=== PATIENT | male | born 1995 | race Caucasian/White ===

== ENCOUNTER 2024-09-02 11:56 | Outpatient (CLI) | payer SELFPAY ==
[2024-09-02 15:49] LABS: Coronavirus 19, PCR Not Detected (NotDetected); Influenza A, PCR Not Detected (NotDetected); Influenza B, PCR Not Detected (NotDetected)
== END 2024-09-02 23:59 | disposition home or self-care (01) ==
LOC: LAB.DROPOF 09-03 09:50
PROVIDERS: PCP Student in an Organized Health Care Education/Training Program; Visit Provider Student in an Organized Health Care Education/Training Program
DX: R52 Pain, unspecified (principal); R05.9 Cough, unspecified; J06.9 Acute upper respiratory infection, unspecified; R09.81 Nasal congestion; Z72.0 Tobacco use
CPT/HCPCS: 87636

== ENCOUNTER 2024-09-27 09:20 | Outpatient (CLI) | payer SELFPAY ==
[2024-09-27 15:48] LABS: Coronavirus 19, PCR Not Detected (NotDetected); Influenza B, PCR Not Detected (NotDetected)
[2024-09-27 17:12] LABS: Influenza A, PCR Detected (NotDetected)
== END 2024-09-27 23:59 | disposition home or self-care (01) ==
LOC: LAB.DROPOF 09-29 09:21
PROVIDERS: Visit Provider Student in an Organized Health Care Education/Training Program
DX: J02.9 Acute pharyngitis, unspecified (principal); Z20.828 Contact with and (suspected) exposure to other viral communicable diseases
CPT/HCPCS: 87636

== ENCOUNTER 2025-05-11 07:38 | Inpatient (IN) | payer OTHER, SELFPAY ==
[2025-05-11] VITALS (7 sets, daily range): BP systolic 140–164; BP diastolic 84–114; PULSE 82–106; RESP 16–20; TEMP 36.7–36.9; O2SAT 93–98; BMI 52.0; BMI 52.3
--- NOTE | 2025-05-11 07:47 | CT_ITS ---
FINAL REPORT TECHNIQUE: IV contrast enhanced exam This study was performed with techniques to keep radiation doses as low as reasonably achievable, (ALARA). Individualized dose reduction techniques using automated exposure control or adjustment of mA and/or kV according to the patient''s size were employed. CLINICAL HISTORY: Constipation, vomiting, possible obstruction COMPARISON: none FINDINGS: Abdomen: No acute density is seen within the lung bases. There is gallbladder wall thickening with severe surrounding stranding and mild distention. A 24 mm gallstone is present in the central gallbladder. Findings are highly suspicious for acute cholecystitis. No evidence of biliary obstruction. There is fatty infiltration of the liver. The remaining solid abdominal organs are normal. No bowel obstruction is present. There is no free air. No fluid collection is seen. There is mild adenopathy in the john hepatis, probably reactive. Pelvis: The appendix is normal. No bowel wall thickening is present. There is no free fluid. No pelvic mass is seen. IMPRESSION: Findings highly suspicious for acute cholecystitis without biliary obstruction. No bowel obstruction. Reviewed, Interpreted and Dictated by Vivian Sanchez MD Transcribed by Ling Arguello Authenticated and [facility]
--- NOTE | 2025-05-11 07:49 | HMH.EDGENADL ---
Discharge Plan Disposition Patient Disposition: Admitted Prescriptions Prescriptions: No Action amoxicillin-pot clavulanate 875-125 mg tablet 1 tab PO BID 10 Days Qty: 20 0RF ibuprofen 600 mg tablet 600 mg PO Q6H PRN (Reason: fever or pain) Qty: 20 0RF Referrals Follow up/Referrals: Provider,Referral, [Primary Care Provider, Medical] - See instructions Clinical Impressions Clinical Impression: Acute cholecystitis Instructions Patient Instructions: DI for Acute Abdominal Pain Print Language Print Language: [place] Zealander Discharge ED Provider: Winston Calderon General Adult HPI General Chief complaint: Abdominal Pain Stated complaint: back pain, can't urinate, no BM in 5 days Time Seen by Provider: 05/11/25 07:40 History of Present Illness HPI narrative: Westley Neville is a 30-year-old male with no significant past medical history who presents to the emergency department for complaints of constipation, vomiting and abdominal pain and inability to urinate. Patient states that a week ago, he was treated for a sinus infection and over last 5 days has not had a bowel movement. He states that he has not producing any flatulence. He also states that over the last 3 days, he has been unable to keep down any solid foods and has been vomiting. He states that he is able to keep some liquids down but not all liquids. He denies any fevers. He states that he is having left-sided abdominal pain with this. He notes that he is unable to urinate unless he is taking a hot shower and even then it is only a slight dribble. He has not tried any [id number] laxatives or enemas or suppositories. He has not had any abdominal surgeries. He does report having bilateral lower back pain with this as well. Related Data Previous Rx's ?Medication ?Instructions ?Recorded amoxicillin 875 mg-potassium 1 tab PO BID 10 days #20 tabs 01/03/25 clavulanate 125 mg tablet ibuprofen 600 mg tablet 600 mg PO Q6H PRN fever or pain 01/03/25 #20 tabs Allergies Allergy/AdvReac Type Severity Reaction Status Date / Time No Known Allergies Allergy Verified 01/03/25 10:39 [facility] Disclaimer: The information contained in this section may have been updated after the patient was seen, as this information can be updated by other users. Medical History (Updated 05/11/25 @ 10:12 by Winston Calderon MD) Dental infection Social History Smoking Status: Current every day smoker tobacco type: cigarettes packs per day: 1 pack-years: 13 alcohol intake: current alcohol intake frequency: 0-2 drinks per day current occupational status: employed Travel in the last 8 weeks?: None adopted: No caregiver/support person: No foster care: No household members: none housing: house lives independently: Yes marital status: single number of children: 0 number of grandchildren: 0 Have you lived/traveled outside US in past 30 days?: No Contact w/someone who lives/traveled outside US past 30 days?: No Exposure to someone with infectious disease in past 14 days?: No Do you have a fever (greater than 100.4 F or 38 C)?: No Have you tested positive for COVID-19?: No Exposed to someone with COVID-19 in past 14 days?: No Do you have a sore throat?: No Do you have a cough?: No Do you have any weakness?: No Do you have any diarrhea?: No Are you experiencing any unusual bleeding?: No Do you have any muscle aches/pain?: No Do you have any abdominal pain?: No Are you experiencing loss of taste or smell?: No ROS Obtained: Yes Systems reviewed as appropriate & no additional complaints except as documented Physical Exam General General appearance: alert, in no apparent distress and obese Comment: appears uncomfortable Head Head exam: atraumatic Eye Eye exam: Present normal appearance ENT ENT exam: Present normal external ear exam Neck Neck exam: Present full ROM Chest Chest inspection: Present symmetric chest wall rise Respiratory Respiratory exam: Present normal lung sounds bilaterally; Absent respiratory distress, wheezes or stridor Cardiovascular Cardiovascular exam: Present normal rhythm and tachycardia Abdominal Exam Abdominal exam: Present soft and tenderness (Left upper quadrant, left lower quadrant and suprapubic); Absent guarding or rigidity exam: Present deferred Extremities Exam Extremities exam: Present normal inspection Back Exam Back exam: Present normal inspection; Absent CVA tenderness (R) or CVA tenderness (L) Neurological Exam Neurological exam: Present alert and oriented X3 Psychiatric Psychiatric exam: Present normal affect Skin Skin exam: Present warm and dry Medical Decision Making Medical Records Screening: Per USPSTF and CDC recommendations, given the prevalence of disease in our region, it is our hospital?s policy to screen for HIV and viral Hepatitis for all patients aged 18 and over and those with ongoing risk factors. David Inquiry Pt receiving controlled substance: No Vital Signs: 05/11/25 07:39 05/11/25 08:31 05/11/25 09:01 Temperature 98.1 F Temperature Source Oral Pulse Rate 86 82 Pulse Rate [Left Radial] 100 H Respiratory Rate 20 Blood Pressure 148/93 H 142/85 H Blood Pressure [Right Arm] 164/114 H Blood Pressure Mean [Right Arm] 130 02 Sat by Pulse Oximetry 96 95 95 Oxygen Delivery Method Room Air Lab Data Lab Results 05/11/25 07:45: WBC 17.9 H, RBC 5.91, Hgb 15.8, Hct 46.3, MCV 78.3 L, MCH 26.7 L, MCHC 34.1, RDW 12.4, Plt Count 386, MPV 10.0, Neut % (Auto) 83.7 H, Lymph % (Auto) 8.7 L, [place] % (Auto) 5.8, Eos % (Auto) 1.0, Baso % (Auto) 0.4, Neut # (Auto) 15.0 H, Lymph # (Auto) 1.6, [place] # (Auto) 1.0, Eos # (Auto) 0.2, Baso # (Auto) 0.1, Sodium 135 L, Potassium 3.7, Chloride 97 L, Carbon Dioxide 27, Anion Gap 14.7, BUN 11, Creatinine 0.90, Estimated Creat Clear 110, Estimated GFR 98, Est GFR ( Amer) 118, Glucose 128 H, Lactate 0.8, Calcium 9.3, Total Bilirubin 1.1, AST 30, ALT 41, Alkaline Phosphatase 79, Total Protein 8.9 H, Albumin 4.5, Globulin 4.4 H, Albumin/Globulin Ratio 1.0 L, Lipase 35 05/11/25 09:42: Urine Color Yellow, Urine Appearance Clear, Urine pH 6.5, Ur Specific [place] 1.010, Urine Protein 1+ A, Urine Glucose (UA) Negative, Urine Ketones 2+, Urine Blood Trace-i, Urine Nitrate Negative, Urine Bilirubin 1+ A, Urine Urobilinogen 2.0, Ur Leukocyte Esterase Negative, Urine RBC None, Urine WBC Occasional, Ur Squamous Epith Cells Occasional, Urine Bacteria Trace 05/11/25 07:45 05/11/25 07:45 Orders (Tests/Meds): ED MEDICATIONS Generic Name Dose Route Start Last Admin Trade Name Freq PRN Reason Stop Dose Admin Piperacillin Sod/Tazobactam 100 mls @ 200 mls/hr 05/11/25 10:00 Sod 4.5 gm/ Sodium Chloride IV 05/21/25 09:59 Q8H MARIO Discontinued Medications Generic Name Dose Route Start Last Admin Trade Name Freq PRN Reason Stop Dose Admin Lactated Ringer's 1,000 mls @ 999 mls/hr 05/11/25 07:47 05/11/25 09:09 Lactated Ringer's 1000 Ml Bag IV 05/11/25 08:47 Infused .Q1H1M ONE Infusion Iopamidol 75 ml 05/11/25 08:22 05/11/25 08:23 Iopamidol-370 (76%);100ml Bottle IV 05/11/25 08:23 75 ml ONCE ONE Administration Ketorolac Tromethamine 15 mg 05/11/25 07:54 05/11/25 08:04 Ketorolac 15mg/Ml Vial IV 05/11/25 07:55 15 mg ONCE ONE Administration Morphine Sulfate 4 mg 05/11/25 09:51 Morphine 4mg/Ml Syringe IV 05/11/25 09:52 ONCE ONE Ondansetron HCl 4 mg 05/11/25 07:47 05/11/25 08:04 Ondansetron 4mg/2ml Vial IV 05/11/25 07:48 4 mg ONCE ONE Administration Sodium Chloride 10 ml 05/11/25 08:22 05/11/25 08:23 Sodium Chloride 0.9% 10ml Syr (Rad Only) IV 05/11/25 08:23 10 ml ONCE ONE Administration ORDERS Category Date Time Status CT abdomen pelvis w con Stat Cat Scan 05/11/25 07:47 Completed US RUQ [US abdomen limited] Stat Exams 05/11/25 09:51 Taken CBC w/Auto Diff [Complete Blood Count Auto Diff] Stat Lab 05/11/25 07:45 Completed CMP [Comprehensive Metabolic Panel] Stat Lab 05/11/25 07:45 Completed Lactic Acid Stat Lab 05/11/25 07:45 Completed Lipase Stat Lab 05/11/25 07:45 Completed UA [Urinalysis and Microscopic] Stat Lab 05/11/25 09:42 Completed Medical Decision Narrative: Westley Neville is a 30-year-old male with no significant past medical history who presents to the emergency department for complaints of constipation, vomiting and abdominal pain and inability to urinate. Patient states that a week ago, he was treated for a sinus infection and over last 5 days has not had a bowel movement. He states that he has not producing any flatulence. He also states that over the last 3 days, he has been unable to keep down any solid foods and has been vomiting. He states that he is able to keep some liquids down but not all liquids. He denies any fevers. He states that he is having left-sided abdominal pain with this. He notes that he is unable to urinate unless he is taking a hot shower and even then it is only a slight dribble. He has not tried any dznq-[id number] laxatives or enemas or suppositories. He has not had any abdominal surgeries. He does report having bilateral lower back pain with this as well. On arrival, patient is hypertensive with blood pressure 164/114, borderline tachycardic, afebrile, maintaining appropriate oxygen saturation on room air. Physical exam, as stated above, revealed a nontoxic-appearing male in no respiratory distress. He is alert and answering questions appropriately. He has tenderness over the left upper quadrant, left lower quadrant and suprapubic regions without significant guarding or rebound. No peritonitis. Cardiac exam reveals mild tachycardia but no murmurs or rubs. No wheezing, rales or rhonchi. Patient has no CVA tenderness. Differential diagnosis includes, but is not limited to: Constipation, fecal impaction, bowel obstruction, volvulus, ileus, diverticulitis, acute pancreatitis, gastroenteritis, among others. The most morbid conditions were considered and workup was based on these. Initial workup in the emergency department included: CT abdomen pelvis with IV contrast, CBC with differential, CMP, lactic acid, lipase, urinalysis. Patient was treated with 4 mg of IV Zofran and 1 L lactated Ringer's Workup shows leukocytosis of 17.9 with neutrophil predominance. No anemia. Platelets normal. Mild hyponatremia at 135 but electrolytes otherwise grossly unremarkable nonactionable. No JORGITO. Lactate normal at 0.8. Liver enzymes and bilirubin within normal limits. Lipase normal at 35. Urine shows 1+ bilirubin but negative nitrate and negative leukocyte esterase. No evidence of infection. CT imaging was interpreted by me personally. There is a 2.4 cm gallstone within the gallbladder with gallbladder wall thickening and significant stranding around the gallbladder consistent with acute cholecystitis. No evidence of bowel obstruction. See radiology report for details. Given these findings, I did discuss patient's case with Dr. Galan with the general surgery team who agreed with diagnosis of acute cholecystitis. He recommended antibiotics, right upper quadrant ultrasound and admission with likely surgery tomorrow. Will obtain right upper quadrant ultrasound. Will administer 4 mg of IV morphine for continued pain. I discussed this plan with the patient and he was in agreement with admission at this time. I then discussed patient's case with Dr. Hendrickson with the hospital medicine service for admission and he agreed to admit the patient for further management. Critical Care Critical Care Time Critical Care Time: No
[2025-05-11] MEDS: ONDANSETRON 4MG/2ML VIAL 4 MG IV (08:04)
[2025-05-11] MEDS: KETOROLAC 15MG/ML VIAL 15 MG IV (08:04)
[2025-05-11] MEDS: LACTATED RINGERS 1000ML 1,000 ML 999 ML IV (08:04)
[2025-05-11 08:06] LABS: Hematocrit 46.3 % (42.0-52.0); Hemoglobin 15.8 g/dL (14.1-18.0); Immature Granulocytes % 0.4 %; Mean Corpuscular HGB Conc 34.1 g/dL (31.8-35.4); Mean Corpuscular Hemoglobin 26.7 pg (27.0-31.2); Mean Corpuscular Volume 78.3 fl (80-94); Nucleated Red Blood Cells % 0 %; Platelet Count 386 K/mm3 (142-424); Red Blood Count 5.91 M/mm3 (4.60-6.20); Red Cell Distribution Width-SD 35.1 fL; White Blood Count 17.9 K/mm3 (4.8-10.8)
[2025-05-11 08:14] LABS: Albumin Level 4.5 g/dl (3.5-5.0); Chloride 97 mmol/L (98-107); Potassium 3.7 mmoL/L (3.5-5.1); Sodium 135 mmol/L (136-145)
[2025-05-11 08:17] LABS: Alanine Aminotransferase 41 U/L (12-78); Albumin/Globulin Ratio 1.0 (1.1-1.8); Alkaline Phosphatase 79 U/L (38-126); Anion Gap 14.7 mEq/L (5-15); Aspartate Amino Transferase 30 U/L (17-59); Bilirubin,Total 1.1 mg/dl (0.2-1.3); Blood Urea Nitrogen 11 mg/dl (9-20); Carbon Dioxide 27 mmol/L (22.0-30.0); Creatinine Clearance Estimated 110 mL/min (50-200); Creatinine,Serum 0.90 mg/dl (0.66-1.25); Estimated Glomerular Filt Rate 98 ml/min (>60); GFR (African American) 118 ML/MIN (>60); Globulin 4.4 g/dL (1.3-3.2); Total Protein,Serum 8.9 g/dl (6.3-8.2)
[2025-05-11 08:18] LABS: Calcium 9.3 mg/dl (8.4-10.2); Glucose 128 mg/dl (74-100); Lipase 35 U/L (23-300)
[2025-05-11] MEDS: IOPAMIDOL-370 (76%);100ML BOTTLE 75 ML IV (08:23)
[2025-05-11] MEDS: SODIUM CHLORIDE 0.9% 10ML SYR (RAD ONLY) 10 ML IV (08:23)
--- NOTE | 2025-05-11 09:44 | PC.NURSE ---
paged at this time.
--- NOTE | 2025-05-11 09:51 | US_ITS ---
FINAL REPORT TECHNIQUE: Multiple transverse and longitudinal images CLINICAL HISTORY: Acute cholecystitis FINDINGS: There is a dominant gallstone in the proximal gallbladder measuring up to 2.7 cm. There is gallbladder wall thickening with trace surrounding fluid raising the question of acute cholecystitis. No biliary ductal dilatation is appreciated. No fluid collections are seen. Limited portions of the right liver are unremarkable. Limited portions of the right kidney are unremarkable. Pancreas is largely obscured. IMPRESSION: Cholelithiasis with findings suggestive of acute cholecystitis. Reviewed, Interpreted and Dictated by Vivian Sanchez MD Transcribed by Barb France Authenticated and [facility]
[2025-05-11 09:52] LABS: Microscopic, Urine URINE MICROSCOPIC (MICROSCOPIC)
--- NOTE | 2025-05-11 09:52 | PC.NURSE ---
AMANDA RAY on phone with dr mejia for surgery consult
[2025-05-11 09:54] LABS: Color,Urine YELLOW (Yellow); Glucose,Urine (UA) Negative (Negative); Ketones,Urine 2+ (Negative); Leukocyte Esterase,Urine Negative (Negative); PH,Urine 6.5 (5.0-8.5); Protein,Urine 1+ (Negative); Specific Gravity, Urine 1.010 (1.005-1.030); Urobilinogen,Urine 2.0 EU/dl (0.2)
[2025-05-11 10:08] LABS: Bilirubin,Urine 1+ (Negative)
[2025-05-11 10:09] LABS: Bacteria,Urine Trace /lpf; Squamous Epithelial Cell,Urine Occasional #/hpf (0-5); WBC,Urine Occasional #/hpf (0-3)
--- NOTE | 2025-05-11 10:33 | P.CONS_ITS ---
History of Present Illness *Admission Date: 05/11/25 *Reason for visit:: Acute cholecystitis *History of present illness: Patient is a 30-year-old male with BMI of 52 who presented to the emergency department today on 05/11/2025 with a 5-day history of unusual constellation of symptoms including inability to urinate, constipation, vomiting. He had some associated bilateral lower back pain. Examination in the emergency department revealed some left upper quadrant and left lower quadrant as well as suprapubic tenderness. Evaluation revealed a leukocytosis of 17,900. He underwent CT scan which revealed findings consistent with acute cholecystitis without biliary ductal dilatation with a 2.4 cm gallstone with severe surrounding pericholecystic stranding with mild distention and gallbladder wall thickening. Surgery was consulted. [facility] Disclaimer: The information contained in this section may have been updated after the patient was seen, as this information can be updated by other users. Medical History (Updated 05/11/25 @ 10:12 by Winston Calderon MD) Dental infection Social History Smoking Status: Current every day smoker tobacco type: cigarettes packs per day: 1 pack-years: 13 alcohol intake: current alcohol intake frequency: 0-2 drinks per day current occupational status: employed Travel in the last 8 weeks?: None adopted: No caregiver/support person: No foster care: No household members: none housing: house lives independently: Yes marital status: single number of children: 0 number of grandchildren: 0 Have you lived/traveled outside US in past 30 days?: No Contact w/someone who lives/traveled outside US past 30 days?: No Exposure to someone with infectious disease in past 14 days?: No Do you have a fever (greater than 100.4 F or 38 C)?: No Have you tested positive for COVID-19?: No Exposed to someone with COVID-19 in past 14 days?: No Do you have a sore throat?: No Do you have a cough?: No Do you have any weakness?: No Do you have any diarrhea?: No Are you experiencing any unusual bleeding?: No Do you have any muscle aches/pain?: No Do you have any abdominal pain?: No Are you experiencing loss of taste or smell?: No Meds Home Medications and Allergies New Prescriptions to Start Prescriptions: Allergies Allergy/AdvReac Type Severity Reaction Status Date / Time No Known Allergies Allergy Verified 01/03/25 10:39 Exam (Inpt) Vital signs and Labs for Last 24 Hours: Temp Pulse Resp BP Pulse Ox O2 Del Method 98.1 F 82 20 142/85 H 95 Room Air 05/11/25 07:39 05/11/25 09:01 05/11/25 07:39 05/11/25 09:01 05/11/25 09:01 05/11/25 07:39 Laboratory Results - last 24 hr 05/11/25 07:45: WBC 17.9 H, RBC 5.91, Hgb 15.8, Hct 46.3, MCV 78.3 L, MCH 26.7 L , MCHC 34.1, RDW 12.4, Plt Count 386, MPV 10.0, Neut % (Auto) 83.7 H, Lymph % (Auto) 8.7 L, [place] % (Auto) 5.8, Eos % (Auto) 1.0, Baso % (Auto) 0.4, Neut # (Auto) 15.0 H, Lymph # (Auto) 1.6, [place] # (Auto) 1.0, Eos # (Auto) 0.2, Baso # (Auto) 0.1, Sodium 135 L, Potassium 3.7, Chloride 97 L, Carbon Dioxide 27, Anion Gap 14.7, BUN 11, Creatinine 0.90, Estimated Creat Clear 110, Estimated GFR 98, Est GFR ( Amer) 118, Glucose 128 H, Lactate 0.8, Calcium 9.3, Total Bilirubin 1.1, AST 30, ALT 41, Alkaline Phosphatase 79, Total Protein 8.9 H, Albumin 4.5, Globulin 4.4 H, Albumin/Globulin Ratio 1.0 L, Lipase 35 05/11/25 09:42: Urine Color Yellow, Urine Appearance Clear, Urine pH 6.5, Ur Specific [place] 1.010, Urine Protein 1+ A, Urine Glucose (UA) Negative, Urine Ketones 2+, Urine Blood Trace-i, Urine Nitrate Negative, Urine Bilirubin 1+ A, Urine Urobilinogen 2.0, Ur Leukocyte Esterase Negative, Urine RBC None, Urine WBC Occasional, Ur Squamous Epith Cells Occasional, Urine Bacteria Trace I & O for Labs for Last 24 Hours: Intake & Output 05/08/25 05/09/25 05/10/25 05/11/25 11:59 11:59 11:59 11:59 Intake Total 1000 / 1000 Balance 1000 / 999 Weight 332 lb Constitutional: no acute distress GI: Present soft; Absent tenderness Results Labs 05/11/25 07:45 05/11/25 07:45 Labs: Laboratory Results - last 24 hr 05/11/25 07:45: WBC 17.9 H, RBC 5.91, Hgb 15.8, Hct 46.3, MCV 78.3 L, MCH 26.7 L , MCHC 34.1, RDW 12.4, Plt Count 386, MPV 10.0, Neut % (Auto) 83.7 H, Lymph % (Auto) 8.7 L, [place] % (Auto) 5.8, Eos % (Auto) 1.0, Baso % (Auto) 0.4, Neut # (Auto) 15.0 H, Lymph # (Auto) 1.6, [place] # (Auto) 1.0, Eos # (Auto) 0.2, Baso # (Auto) 0.1, Sodium 135 L, Potassium 3.7, Chloride 97 L, Carbon Dioxide 27, Anion Gap 14.7, BUN 11, Creatinine 0.90, Estimated Creat Clear 110, Estimated GFR 98, Est GFR ( Amer) 118, Glucose 128 H, Lactate 0.8, Calcium 9.3, Total Bilirubin 1.1, AST 30, ALT 41, Alkaline Phosphatase 79, Total Protein 8.9 H, Albumin 4.5, Globulin 4.4 H, Albumin/Globulin Ratio 1.0 L, Lipase 35 05/11/25 09:42: Urine Color Yellow, Urine Appearance Clear, Urine pH 6.5, Ur Specific [place] 1.010, Urine Protein 1+ A, Urine Glucose (UA) Negative, Urine Ketones 2+, Urine Blood Trace-i, Urine Nitrate Negative, Urine Bilirubin 1+ A, Urine Urobilinogen 2.0, Ur Leukocyte Esterase Negative, Urine RBC None, Urine WBC Occasional, Ur Squamous Epith Cells Occasional, Urine Bacteria Trace Assessment and Plan *Assessment and plan (1) Acute cholecystitis: Status: Acute Category: Medical Code(s): K81.0 - Acute cholecystitis Plan Even though patient's initial symptoms and complaints were rather atypical his CT scan shows appreciable significant cholecystitis. Recommend inpatient admission for antibiotics. Definitive ultrasound. Plan for likely early interval cholecystectomy.
[2025-05-11] MEDS: MORPHINE 4MG/ML SYRINGE 4 MG IV (10:35)
[2025-05-11] MEDS: PIPERACILLIN/TAZO 4.5 GM in 0.9 % SODIUM CHLORIDE 100 ML IV ×2 (10:35→17:49)
--- NOTE | 2025-05-11 10:48 | PC.NURSE ---
Dr Galan is speaking with this pt at this time
--- NOTE | 2025-05-11 11:22 | PC.NURSE ---
arrived by w/c from ED
--- NOTE | 2025-05-11 12:37 | P.HP_ITS ---
<Statement entered by Gokul Hendrickson MD - 05/13/25 12:57> Agree with plan of care as outlined by the RANGE MOUNTER. History of Present Illness *Admission Date: 05/11/25 *Reason for visit:: Abdominal pain *History of present illness: Patient is a 30-year-old male with BMI of 52 who presented to the emergency department on 05/11/2025 with a 5-day history of unusual constellation of symptoms including inability to urinate, constipation, vomiting. He had some associated bilateral lower back pain. Examination in the emergency department revealed some left upper quadrant and left lower quadrant as well as suprapubic tenderness. Evaluation revealed a leukocytosis of 17,900. He underwent CT scan which revealed findings consistent with acute cholecystitis without biliary ductal dilatation with a 2.4 cm gallstone with severe surrounding pericholecystic stranding with mild distention and gallbladder wall thickening. Surgery was consulted. [facility] Disclaimer: The information contained in this section may have been updated after the patient was seen, as this information can be updated by other users. Medical History (Updated 05/11/25 @ 15:07 by Miguelina Meek APRN) Dental infection Family History (Updated 05/11/25 @ 11:45 by Judy Hammer RN) Other No significant family history Social History (Updated 05/11/25 @ 11:45 by Judy Hammer RN) Smoking Status: Current every day smoker tobacco type: cigarettes packs per day: 1 pack-years: 13 alcohol intake: current alcohol intake frequency: 0-2 drinks per day current occupational status: employed Travel in the last 8 weeks?: None adopted: No caregiver/support person: No foster care: No household members: none housing: house lives independently: Yes marital status: single number of children: 0 number of grandchildren: 0 Have you lived/traveled outside [place] in past 30 days?: No Contact w/someone who lives/traveled outside US past 30 days?: No Exposure to someone with infectious disease in past 14 days?: No Do you have a fever (greater than 100.4 F or 38 C)?: No Have you tested positive for COVID-19?: No Exposed to someone with COVID-19 in past 14 days?: No Do you have a sore throat?: No Do you have a cough?: No Do you have any weakness?: No Do you have any diarrhea?: No Are you experiencing any unusual bleeding?: No Do you have any muscle aches/pain?: No Do you have any abdominal pain?: No Are you experiencing loss of taste or smell?: No Other Medical History Have you received the Flu Vaccine for this season: No Have you received the Pneumonia Vaccine: No Review of Systems *Cardiovascular Cardiovascular: Denies chest pain and Denies dyspnea *Respiratory Respiratory: Denies dyspnea *Gastrointestinal Gastrointestinal: Reports abdominal pain, Denies heartburn, Reports nausea and Reports vomiting *Genitourinary Genitourinary: Denies dysuria Meds Home Medications and Allergies Home Medications ?Medication ?Instructions ?Recorded ?Confirmed ?Type No Known Home Medications 05/11/2504/21 History New Prescriptions to Start Prescriptions: Allergies Allergy/AdvReac Type Severity Reaction Status Date / Time No Known Allergies Allergy Verified 01/03/25 10:39 Exam Data for Last 24 hours Vital signs and Labs for Last 24 Hours: Temp Pulse Resp BP Pulse Ox O2 Del Method 98.2 F 87 17 152/96 H 97 Room Air 05/11/25 10:56 05/11/25 11:26 05/11/25 11:26 05/11/25 11:26 05/11/25 11:26 05/11/25 11:26 Laboratory Results - last 24 hr 05/11/25 07:45: WBC 17.9 H, RBC 5.91, Hgb 15.8, Hct 46.3, MCV 78.3 L, MCH 26.7 L , MCHC 34.1, RDW 12.4, Plt Count 386, MPV 10.0, Neut % (Auto) 83.7 H, Lymph % (Auto) 8.7 L, [place] % (Auto) 5.8, Eos % (Auto) 1.0, Baso % (Auto) 0.4, Neut # (Auto) 15.0 H, Lymph # (Auto) 1.6, [place] # (Auto) 1.0, Eos # (Auto) 0.2, Baso # (Auto) 0.1, Sodium 135 L, Potassium 3.7, Chloride 97 L, Carbon Dioxide 27, Anion Gap 14.7, BUN 11, Creatinine 0.90, Estimated Creat Clear 110, Estimated GFR 98, Est GFR ( Amer) 118, Glucose 128 H, Lactate 0.8, Calcium 9.3, Total Bilirubin 1.1, AST 30, ALT 41, Alkaline Phosphatase 79, Total Protein 8.9 H, Albumin 4.5, Globulin 4.4 H, Albumin/Globulin Ratio 1.0 L, Lipase 35 05/11/25 09:42: Urine Color Yellow, Urine Appearance Clear, Urine pH 6.5, Ur Specific [place] 1.010, Urine Protein 1+ A, Urine Glucose (UA) Negative, Urine Ketones 2+, Urine Blood Trace-i, Urine Nitrate Negative, Urine Bilirubin 1+ A, Urine Urobilinogen 2.0, Ur Leukocyte Esterase Negative, Urine RBC None, Urine WBC Occasional, Ur Squamous Epith Cells Occasional, Urine Bacteria Trace I & O for Last 24 hours: Intake & Output 05/08/25 05/09/25 05/10/25 05/11/25 23:59 23:59 23:59 23:59 Intake Total 1100 / 1100 Balance 1100 / 1100 Weight 151.557 kg Constitutional Constitutional: no acute distress, morbidly obese and cooperative *Routine HEENT Exam Head: Present normocephalic Eye: Present EOMI ENT: Present mucous membranes moist *Routine Neck Exam Neck: Present supple *Routine Respiratory Exam Respiratory: Present CTA bilaterally and normal respiratory effort; Absent wheezes or crackles *Routine Cardiovascular Exam Cardiovascular: Present RRR; Absent murmur *Routine Abdominal Exam Abdominal: Present soft, normoactive bowel sounds, tenderness and obese; Absent distended *Routine Rectal Exam Rectal:: deferred *Routine Genitalia Exam Genitalia:: deferred *Routine Extremities Exam Extremities: Present full ROM; Absent edema *Routine Skin Exam Skin: Present intact and dry; Absent rash *Routine Neurological Exam Neurological: Present alert and oriented X3 Assessment and Plan *Assessment and plan (1) Acute cholecystitis: Status: Acute Category: Medical Code(s): K81.0 - Acute cholecystitis (2) Abdominal pain: Status: Acute Category: Medical Code(s): R10.9 - Unspecified abdominal pain (3) Leukocytosis: Status: Acute Category: Medical Code(s): D72.829 - Elevated white blood cell count, unspecified Plan Mr. Neville is a 30-year-old male who presented to the emergency department with complaints of abdominal pain, nausea, vomiting. He states that he has been feeling bad for approximately 4 days. He has been unable to tolerate significant p.o. intake. Workup in the emergency department was significant for elevated white count of 17.9, no anemia, no electrolyte abnormalities, normal kidney function. Imaging was obtained in the emergency department which showed acute cholecystitis. Right upper quadrant ultrasound was also obtained which was significant for cholelithiasis with findings suggestive of acute cholecystitis. General surgery was consulted. Hospital medicine was consulted for admission, I agreed to admit the patient. Plan of care as follows: #Acute cholecystitis #Abdominal pain #Leukocytosis ? Patient assessment reveals continued nausea and abdominal pain. Tylenol ordered for mild pain, [place] 5/325 for moderate pain, morphine 2 mg every 4 hours as needed for severe pain. Zofran ordered as needed for nausea. ? General Surgery consulted, plans for laparoscopic cholecystectomy tomorrow. Clear liquid diet ordered, patient made n.p.o. after midnight. ? Leukocytosis noted at 17.9. Patient receiving Zosyn every 8-hour empirically. ? CBC, CMP, magnesium level ordered for the a.m. Full code VTE?IPC's Ambulate as tolerated Clear liquid diet, n.p.o. at midnight
[2025-05-11] MEDS: NICOTINE 21MG/24HR PATCH 21 MG TD (14:37)
[2025-05-11] MEDS: HYDROCODONE/APAP 5/325 MG TABLET 1 TAB PO (14:43)
[2025-05-11] MEDS: LIDOCAINE 5% TRANSDERMAL PATCH 1 EACH TD (18:08)
[2025-05-11] MEDS: ZOLPIDEM TARTRATE 5 MG TABLET PO (21:26)
[2025-05-12] VITALS (29 sets, daily range): BP systolic 134–179; BP diastolic 81–113; PULSE 82–111; RESP 14–24; TEMP 36.4–43; O2SAT 90–97; BMI 52.1
[2025-05-12] MEDS: PIPERACILLIN/TAZO 4.5 GM in 0.9 % SODIUM CHLORIDE 100 ML IV ×2 (02:15→17:39)
[2025-05-12 06:11] LABS: Hematocrit 45.0 % (42.0-52.0); Hemoglobin 14.9 g/dL (14.1-18.0); Immature Granulocytes % 0.5 %; Mean Corpuscular HGB Conc 33.1 g/dL (31.8-35.4); Mean Corpuscular Hemoglobin 26.4 pg (27.0-31.2); Mean Corpuscular Volume 79.8 fl (80-94); Nucleated Red Blood Cells % 0 %; Platelet Count 323 K/mm3 (142-424); Red Blood Count 5.64 M/mm3 (4.60-6.20); Red Cell Distribution Width-SD 36.0 fL; White Blood Count 14.8 K/mm3 (4.8-10.8)
[2025-05-12 06:31] LABS: Albumin Level 4.2 g/dl (3.5-5.0); Chloride 97 mmol/L (98-107); Sodium 135 mmol/L (136-145)
[2025-05-12 06:32] LABS: Potassium 3.7 mmoL/L (3.5-5.1)
[2025-05-12 06:34] LABS: Alanine Aminotransferase 55 U/L (12-78); Anion Gap 15.7 mEq/L (5-15); Aspartate Amino Transferase 38 U/L (17-59); Blood Urea Nitrogen 9 mg/dl (9-20); Carbon Dioxide 26 mmol/L (22.0-30.0); Creatinine Clearance Estimated 96 mL/min (50-200); Creatinine,Serum 1.00 mg/dl (0.66-1.25); Estimated Glomerular Filt Rate 87 ml/min (>60); GFR (African American) 105 ML/MIN (>60)
--- NOTE | 2025-05-12 06:34 | PC.NURSE ---
2011 PT was moved from the Med surg floor room 207 to surgery for a acute sylvain. Pt voiced no comcerns or questions. FRIDA STODDARD RN
[2025-05-12 06:35] LABS: Albumin/Globulin Ratio 1.1 (1.1-1.8); Alkaline Phosphatase 74 U/L (38-126); Bilirubin,Total 1.0 mg/dl (0.2-1.3); Calcium 9.0 mg/dl (8.4-10.2); Globulin 3.8 g/dL (1.3-3.2); Glucose 103 mg/dl (74-100); Magnesium 1.9 mg/dl (1.6-2.3); Total Protein,Serum 8.0 g/dl (6.3-8.2)
--- NOTE | 2025-05-12 07:08 | P.PNANES_ITS ---
[facility] Disclaimer: The information contained in this section may have been updated after the patient was seen, as this information can be updated by other users. Medical History (Updated 05/11/25 @ 15:07 by Miguelina Meek APRN) Dental infection Family History (Updated 05/11/25 @ 11:45 by Judy Hammer RN) Other No significant family history Social History (Updated 05/11/25 @ 11:45 by Judy Hammer RN) Smoking Status: Current every day smoker tobacco type: cigarettes packs per day: 1 pack-years: 13 alcohol intake: current alcohol intake frequency: 0-2 drinks per day substance use type: denies use current occupational status: employed Travel in the last 8 weeks?: None adopted: No caregiver/support person: No foster care: No household members: none housing: house lives independently: Yes marital status: single number of children: 0 number of grandchildren: 0 [facility] Anesthesia Checklist Patient Identification Patient Identification: Arm Band Structural Data Admitted From: Inpatient Planned Operative Procedure/s: Laparoscopic Cholecystectomy Consent for Planned Operative Procedure(s) Verified: Yes Verified Documents: Surgical Consent and History and Physical NPO Status Verified Time NPO: 00:00 Additional verifications Anesthesia Reactions: No Airway Assessment Mallampati Score:: Class II C-Spine Mobility Assessed: Yes TMJ Mobility Assessed: Yes Dentition: Good Dentition Neurological Assessment Level of Consciousness: Awake, Alert and Appropriate Anesthesia Plan Anesthesia Risk discussed: Yes Anesthesia Plan: Verified ASA Class: III Anesthesia Type: General
[2025-05-12] MEDS: LIDOCAINE 1% 20ML MDV 20 ML (07:41)
[2025-05-12] MEDS: CEFAZOLIN 2GM VIAL 2 GM (07:43)
--- NOTE | 2025-05-12 12:32 | PC.NURSE ---
report called to Ana Luisa in ICU
--- NOTE | 2025-05-12 12:59 | P.PN_ITS ---
<Statement entered by Gokul Hendrickson MD - 05/13/25 12:54> Agree with plan of care as outlined by the LINK TRAINER OPERATOR. Subjective *Date: 05/12/25 *Time: 14:37 Interval history: Patient had laparoscopic cholecystectomy today. Procedure took substantially longer than expected, approximately 5-1/2 hours. Patient tolerated procedure well, JONATHAN drain was inserted in the peritoneal cavity. 4 times laparoscopic sites intact. Patient transferred to stepdown for close monitoring. Patient remains hemodynamically stable. Medical Exam Vital signs and Labs for Last 24 Hours: Vital Signs Temp Pulse Resp BP Pulse Ox O2 Del Method 05/12/25 06:17 98.3 F 111 H 14 134/82 96 Room Air 05/12/25 05:00 Room Air 05/12/25 04:00 98.3 F 111 H 16 134/82 96 Room Air 05/12/25 03:00 Room Air 05/12/25 01:00 Room Air 05/11/25 23:00 Room Air 05/11/25 21:00 Room Air 05/11/25 20:00 Room Air 05/11/25 19:56 98.4 F 105 H 16 142/88 H 95 Room Air 05/11/25 18:58 Room Air 05/11/25 17:00 Room Air 05/11/25 16:00 98.3 F 106 H 18 161/97 H 93 L Room Air 05/11/25 15:00 Room Air 05/11/25 13:00 Room Air Intake and Output 05/11/25 05/12/25 05/12/25 23:59 07:59 15:59 Intake Total 100 / 1800 220 / 220 Output Total 0 / 0 0 / 0 Balance 100 / 1800 220 / 220 Intake: Intake, Oral Amount 120 / 120 Intake, Total IV Amount 100 / 1200 100 / 100 Piperacillin/Tazo 4.5 gm In 0.9 100 / 200 100 / 100 % Sodium Chloride 100 ml @ 200 mls/hr IV Q8H [facility] Rx#:[id number] Output: Output, Urine Amount 0 / 0 0 / 0 Other: Number of Unmeasured Voids 1 1 Weight 150.638 kg Patient Weight 05/12/25 23:59 Weight 150.638 kg Laboratory Results - last 24 hr 05/12/25 05:19: WBC 14.8 H, RBC 5.64, Hgb 14.9, Hct 45.0, MCV 79.8 L, MCH 26.4 L , MCHC 33.1, RDW 12.6, Plt Count 323, MPV 10.6 H, Neut % (Auto) 74.9, Lymph % (Auto) 12.8, [place] % (Auto) 6.9, Eos % (Auto) 4.4, Baso % (Auto) 0.5, Neut # (Auto) 11.1 H, Lymph # (Auto) 1.9, [place] # (Auto) 1.0, Eos # (Auto) 0.7 H, Baso # (Auto) 0.1, Sodium 135 L, Potassium 3.7, Chloride 97 L, Carbon Dioxide 26, Anion Gap 15.7 H, BUN 9, Creatinine 1.00, Estimated Creat Clear 96, Estimated GFR 87, Est GFR ( Amer) 105, Glucose 103 H, Calcium 9.0, Magnesium 1.9, Total Bilirubin 1.0, AST 38 D, ALT 55 D, Alkaline Phosphatase 74, Total Protein 8.0, Albumin 4.2, Globulin 3.8 H, Albumin/Globulin Ratio 1.1 I & O for Labs for Last 24 Hours: Intake & Output 05/09/25 05/10/25 05/11/25 05/12/25 23:59 23:59 23:59 23:59 Intake Total 1680 / 1800 220 / 220 Output Total 0 / 0 0 / 0 Balance 1680 / 1800 220 / 220 Weight 151.557 kg 150.638 kg Constitutional: Present no acute distress, morbidly obese, chronically ill appearing and cooperative Head: Present atraumatic Eyes: Present as per HPI ENT: Present normal exam Neck: Present normal inspection Respiratory: Present CTA bilaterally and normal respiratory effort; Absent wheezes or crackles Cardiac: Present Regular Rhythm, No Murmur and Tachycardia GI: Present soft, tenderness and hypoactive bowel sounds; Absent distention Comments:: JONATHAN drain inserted from surgery, 4 times laparoscopic surgical sites with dressings Rectal (male): Present deferred (male): Present normal inspection Comment:: Stevenson catheter in place Extremities: Present normal inspection and full ROM; Absent edema Skin: Present intact and dry; Absent erythema Neuro: Present Grossly Intact, awake, oriented x 3 and moves all extremities Assessment and Plan *Assessment and plan (1) Acute cholecystitis: Status: Acute Category: Medical Code(s): K81.0 - Acute cholecystitis (2) Abdominal pain: Status: Acute Category: Medical Code(s): R10.9 - Unspecified abdominal pain (3) Leukocytosis: Status: Acute Category: Medical Code(s): D72.829 - Elevated white blood cell count, unspecified (4) Status post laparoscopic cholecystectomy: Status: Acute Category: Surgical Code(s): Z90.49 - Acquired absence of other specified parts of digestive tract (5) Transaminitis: Status: Acute Category: Medical Code(s): R74.01 - Elevation of levels of liver transaminase levels Plan Mr. Neville is a 30-year-old male who presented to the emergency department with complaints of abdominal pain, nausea, vomiting. He states that he has been feeling bad for approximately 4 days. He has been unable to tolerate significant p.o. intake. Workup in the emergency department was significant for elevated white count of 17.9, no anemia, no electrolyte abnormalities, normal kidney function. Imaging was obtained in the emergency department which showed acute cholecystitis. Right upper quadrant ultrasound was also obtained which was significant for cholelithiasis with findings suggestive of acute cholecystitis. General surgery was consulted. Hospital medicine was consulted for admission, I agreed to admit the patient. Plan of care as follows: #Acute cholecystitis #Abdominal pain #Leukocytosis #Status post laparoscopic cholecystectomy ? Patient went to the OR today for laparoscopic cholecystectomy, procedure took significantly longer than anticipated. Numerous unexpected adhesions. Patient has JONATHAN drain in place. 4 times laparoscopic sites clean dry and intact. Patient remaining hemodynamically stable. Patient moved to stepdown for closer monitoring. Continuous O2 and cardiac telemetry ordered, pain medication ordered. Monitoring for toxicity ? Tylenol ordered for mild pain, [place] 5/325 for moderate pain, morphine 4 mg every 4 hours as needed for severe pain. Zofran ordered as needed for nausea. ? Will advance diet as tolerated, clear liquid diet ordered. ? Initial white count elevated at 17.9, trending downward today to 14. Continu ing Zosyn every 8 hours IV. ? Patient had Stevenson catheter placed during operative procedure, will continue for accurate I's and O's at this time. LR at 125 mL/H ordered for hydration. ? CBC, CMP, magnesium level ordered for the a.m. #Transaminitis ? Patient had repeat CMP postprocedure, LFTs elevated likely due to surgical procedure. Will continue to monitor. Full code VTE?IPC's Ambulate as tolerated Clear liquid diet
--- NOTE | 2025-05-12 13:20 | EXP.OP.NOTE ---
Date of procedure: 05/12/25 Pre-op Diagnosis:: Acute calculous cholecystitis Post-op Diagnosis:: Same Procedure performed:: Laparoscopic cholecystectomy for severe acute gangrenous cholecystitis Surgeon:: Earnest Galan MD APPLICATIONS SUPPORT ANALYST:: Sarah Kelsey Anesthesia: GETA Estimated blood loss (mL): 200 Operative findings:: He had some significant fatty infiltration of the liver. He had almost a phlegmon like formation around the gallbladder and right upper quadrant. Gallbladder was completely obscured with severe adhesions. Gallbladder was extremely thickened markedly inflamed and largely intrahepatic. There was involved posterior hepatic branch which required clipping for hemostasis. Procedure duration 5-1/2 hours. Operative note:: Consent was obtained patient was taken to the operating room. He was given preoperative intravenous antibiotics. In the operating room he was placed in a supine position. Abdomen was prepped and draped in the standard surgical fashion. Subumbilical skin incision was made and while performing abdominal wall lift Veress needle was inserted. CO2 pneumoperitoneum was achieved to 15 mmHg. 5 mm trocar was inserted at the umbilicus. Intraperitoneal contents were visualized and inspected. He was positioned in reverse Trendelenburg and left side down. He had some appreciable fatty infiltration of the liver. A couple 5 mm trocars were inserted in the right upper abdomen. 10 mm trocar was inserted in the epigastrium. There was somewhat of a phlegmonous inflammatory response in the right upper quadrant. Dissection was carried out ultimately identifying the tip of the gallbladder. This was extremely thick and markedly inflamed. It was unable to be grasped due to the significant inflammation. Adhesions were taken down mostly using blunt dissection. Liver was elevated but due to the severe inflammatory process of the gallbladder it was unable to be grasped and retracted anteriorly. To allow for visualization of the gallbladder near its neck an additional 5 mm trocar was inserted and a fan retractor was placed. The most lateral right upper quadrant 5 mm trocar was replaced with an 11 mm trocar such that a large toothed grasping forcep could be inserted and attempt to retract the gallbladder anteriorly. Dissection was carried out ultimately dissecting down to the neck and infundibulum of the gallbladder. Due to the inflammatory response the gallbladder could not be grasped. A prolonged dissection was carried out using blunt dissectors for retraction on the gallbladder and dissection around the neck of the gallbladder. Ultimately after several hours the apparent cystic duct was identified. This was multiply clipped and sharply divided. Further dissection was carried out identifying cystic artery. Single Hemoclip was applied and this was divided. There was intense inflammatory response around the gallbladder and john hepatis and including the surrounding omentum. The gallbladder was largely intrahepatic. It was difficult to discern planes between the gallbladder and liver. There was some bleeding from tiny branch of apparent hepatic artery involved with the gallbladder inflammatory response. Hemoclip was applied and pressure was held. Repeatedly the Surgicel was inserted into the peritoneal cavity for temporary hemostasis during the dissection as there was intense inflammatory oozing throughout. This was removed as needed. Dissection was carried out dissecting the gallbladder free using cautery hook dissection. There was unavoidable tear in the gallbladder and bile was suctioned free. Gallbladder was placed within an Endo Catch retrieval device and removed from the peritoneal cavity via the epigastric trocar site which required extension of skin and fascial incision for delivery. Gallbladder fossa was inspected for hemostasis. Thorough irrigation and suctioning was carried out with several liters until clear. There was noted to be an area of focal hepatic ischemia seemingly in section V of the liver likely from the involved vascular branch which required clipping. A 10 mm JONATHAN drain was inserted into the peritoneal cavity and placed within the gallbladder fossa and anterior to the john hepatis. It was brought through the medial right upper quadrant trocar. It was secured with a 3-0 nylon horizontal mattress suture. The 10 mm lateral right upper quadrant trocar was closed using the Janes-Efrain laparoscopic fascial closure device with a 0 Vicryl suture. Epigastric trocar site was closed using the Janes-Efrain laparoscopic fascial closure device with multiple 0 Ethibond sutures. Local anesthetic was infiltrated. Skin incisions were closed with 4-0 Monocryl in a subcuticular fashion. Steri-Strips and dressings were applied. Procedure duration 5:30 Given the focal area of unavoidable hepatic ischemia I would expect transaminases to elevate. I will plan to check these in the PACU for baseline as well as a CBC due to blood loss. Condition: stable Disposition: PACU Complications:: None immediately apparent
--- NOTE | 2025-05-12 13:29 | EXP.ANES.I ---
[facility] Anesthesia Record Part I Anesthesia Record I Intake, IV Amount: 3,500 Hydration: Not Adequate Estimated blood loss (mL): 200 Urine output (mL): 125 Blood Pressure: 136/81 SaO2: 95 Pulse Rate: 104 Airway Patency: Patent Respiratory Rate: 20 Temperature: 97.6 F Patient is:: Awake, Nasal O2 and Stable Stable to PACU at:: 13:35
[2025-05-12 13:38] LABS: Hematocrit 43.5 % (42.0-52.0); Hemoglobin 14.2 g/dL (14.1-18.0); Immature Granulocytes % 0.8 %; Mean Corpuscular HGB Conc 32.6 g/dL (31.8-35.4); Mean Corpuscular Hemoglobin 26.7 pg (27.0-31.2); Mean Corpuscular Volume 81.8 fl (80-94); Nucleated Red Blood Cells % 0 %; Platelet Count 318 K/mm3 (142-424); Red Blood Count 5.32 M/mm3 (4.60-6.20); Red Cell Distribution Width-SD 37.7 fL; White Blood Count 14.8 K/mm3 (4.8-10.8)
[2025-05-12 13:44] LABS: Chloride 100 mmol/L (98-107)
[2025-05-12 13:45] LABS: Albumin Level 3.7 g/dl (3.5-5.0); Potassium 4.2 mmoL/L (3.5-5.1); Sodium 136 mmol/L (136-145)
[2025-05-12 13:47] LABS: Blood Urea Nitrogen 12 mg/dl (9-20); Creatinine Clearance Estimated 87 mL/min (50-200); Creatinine,Serum 1.10 mg/dl (0.66-1.25); Estimated Glomerular Filt Rate 78 ml/min (>60); GFR (African American) 94 ML/MIN (>60)
[2025-05-12 13:48] LABS: Alanine Aminotransferase 151 U/L (12-78); Albumin/Globulin Ratio 1.1 (1.1-1.8); Alkaline Phosphatase 77 U/L (38-126); Anion Gap 15.2 mEq/L (5-15); Aspartate Amino Transferase 192 U/L (17-59); Bilirubin,Total 1.8 mg/dl (0.2-1.3); Calcium 8.1 mg/dl (8.4-10.2); Carbon Dioxide 25 mmol/L (22.0-30.0); Globulin 3.3 g/dL (1.3-3.2); Glucose 138 mg/dl (74-100); Total Protein,Serum 7.0 g/dl (6.3-8.2)
--- NOTE | 2025-05-12 14:00 | PC.NURSE ---
pt arrived to room 263 at this time. pt alert and oriented.
--- NOTE | 2025-05-12 14:06 | SUR.PHASEI ---
1355- detailed report given to erickson savage in ICU. Pt VSS, dressings CDI, JONATHAN drain and islas catheter secured. Family at bedside.
[2025-05-12] MEDS: LACTATED RINGERS 1000ML 1,000 ML 125 ML IV ×2 (14:23→22:21)
[2025-05-12 14:26] LABS: Microscopic,Cath URINE MICROSCOPIC (MICROSCOPIC)
[2025-05-12 14:44] LABS: Appearance,Urine/Cath CLEAR (Clear); Blood, Urine/Cath Negative (Negative); Color,Urine/Cath YELLOW (Yellow); Glucose,Urine/Cath (UA) Negative (Negative); Ketones,Urine/Cath 2+ (Negative); Leukocyte Esterase,Cath Negative (Negative); Nitrate,Cath POSITIVE (Negative); PH,Urine/Cath 5.5 (5.0-8.5); Protein,Urine/Cath 3+ (Negative); Specific Gravity, Urine/Cath >= 1.030 (1.005-1.030); Urobilinogen,Cath 1.0 EU/dl (0.2)
[2025-05-12 15:13] LABS: Bilirubin,Cath Negative (Negative)
--- NOTE | 2025-05-12 15:28 | P.PNANES_ITS ---
[facility] Anesthesia Record Part II Anesthesia Record Part II Discharge Time: 13:55 Destination: Intensive Care Unit PACU nurse assessment reviewed?: Yes Patient Condition:: Good Anesthesia Complications:: None Swallowing reflex intact?: Yes Airway Patency: Patent Cyanosis?: No Blood Pressure: 142/96 SaO2: 97 (2L Face mask) Respiratory Rate: 20 Pulse Rate: 100 Temperature: 97.6 F Mental Status: Alert & Oriented Pain level:: 0 Nausea and/or vomitting:: None Intake, IV Amount: 0 Hydration: Adequate
[2025-05-12] MEDS: HYDROCODONE/APAP 5/325 MG TABLET 1 TAB PO (18:43)
[2025-05-12 19:40] LABS: Bacteria,Urine/Cath 4+ /lpf
[2025-05-12] MEDS: MORPHINE 4MG/ML SYRINGE 4 MG IV (21:51)
[2025-05-13] VITALS (14 sets, daily range): BP systolic 141–173; BP diastolic 80–116; PULSE 85–97; RESP 14–28; TEMP 36.7–36.9; O2SAT 92–94; BMI 54.8
[2025-05-13] MEDS: HYDROCODONE/APAP 5/325 MG TABLET 1 TAB PO ×4 (00:24→18:37)
[2025-05-13] MEDS: PIPERACILLIN/TAZO 4.5 GM in 0.9 % SODIUM CHLORIDE 100 ML IV ×3 (02:17→17:50)
--- NOTE | 2025-05-13 02:24 | PC.NURSE ---
Notified Saranya Freeman of pt continuous high bp readings. Pt asymptomatic and denies pain at this time. Current BP 169/116. Saranya Freeman states he will order BP medication for AM med pass and to continue to monitor through the night and notify if pt becomes symptomatic.
[2025-05-13] MEDS: MORPHINE 4MG/ML SYRINGE 4 MG IV ×2 (02:48→22:12)
--- NOTE | 2025-05-13 06:18 | P.PN_ITS ---
Subjective Narrative: Patient complains of abdominal pain. Exam Data for Last 24 hours Vital signs and Labs for Last 24 Hours: Temp Pulse Resp BP Pulse Ox O2 Del Method O2 Flow Rate 98.2 F 94 H 18 145/103 H 92 L Room Air 2 05/12/25 19:45 05/13/25 04:00 05/13/25 04:00 05/13/25 04:00 05/13/25 04:00 05/13/25 05:00 05/12/25 15:15 Laboratory Results - last 24 hr 05/12/25 05:19: Sodium 135 L, Potassium 3.7, Chloride 97 L, Carbon Dioxide 26, Anion Gap 15.7 H, BUN 9, Creatinine 1.00, Estimated Creat Clear 96, Estimated GFR 87, Est GFR ( Amer) 105, Glucose 103 H, Calcium 9.0, Magnesium 1.9, Total Bilirubin 1.0, AST 38 D, ALT 55 D, Alkaline Phosphatase 74, Total Protein 8.0, Albumin 4.2, Globulin 3.8 H, Albumin/Globulin Ratio 1.1 05/12/25 11:11: Urine Color Yellow, Urine Appearance Clear, Urine pH 5.5, Ur Specific [place] >= 1.030, Urine Protein 3+, Urine Glucose (UA) Negative, Urine Ketones 2+, Urine Blood Negative, Urine Nitrate Positive A, Urine Bilirubin Negative, Urine Urobilinogen 1.0, Ur Leukocyte Esterase Negative, Urine RBC 3-5, Urine WBC 5-10, Ur Squamous Epith Cells 3-5, Urine Bacteria 4+ A 05/12/25 13:30: WBC 14.8 H, RBC 5.32, Hgb 14.2, Hct 43.5, MCV 81.8, MCH 26.7 L, MCHC 32.6, RDW 12.7, Plt Count 318, MPV 10.1, Neut % (Auto) 86.6 H, Lymph % (Auto) 8.4 L, [place] % (Auto) 3.6, Eos % (Auto) 0.3, Baso % (Auto) 0.3, Neut # (Auto) 12.9 H, Lymph # (Auto) 1.2, [place] # (Auto) 0.5, Eos # (Auto) 0.0, Baso # (Auto) 0.1, Sodium 136, Potassium 4.2, Chloride 100, Carbon Dioxide 25, Anion Gap 15.2 H, BUN 12 D, Creatinine 1.10, Estimated Creat Clear 87, Estimated GFR 78, Est GFR ( Amer) 94, Glucose 138 H D, Calcium 8.1 L, Total Bilirubin 1.8 H, AST 192 H D, ALT 151 H D, Alkaline Phosphatase 77, Total Protein 7.0, Albumin 3.7 D, Globulin 3.3 H, Albumin/Globulin Ratio 1.1 I & O for Last 24 hours: Intake & Output 05/10/25 05/11/25 05/12/25 05/13/25 11:59 11:59 11:59 11:59 Intake Total 1100 / 1100 800 / 800 5187.500 / 5187.500 Output Total 0 / 0 2029 / 2029 Balance 1100 / 1100 800 / 800 3157.500 / 3157.500 Weight 334 lb 2 oz 332 lb 1.6 oz 773 lb 9.633 oz *Routine Abdominal Exam Abdominal: Present tenderness Comments: Dressings dry. JONATHAN drain bilious Progress Note: A&P Assessment and plan (1) Acute cholecystitis: Status: Acute (2) Abdominal pain: Status: Acute (3) Leukocytosis: Status: Acute (4) Status post laparoscopic cholecystectomy: Status: Acute (5) Transaminitis: Status: Acute Assessment and Plan Assessment and Plan for All Diagnoses:: Concern for possible ductal issue given appreciable bilious drain output. I will see if he can undergo imaging, ideally MRCP.
--- NOTE | 2025-05-13 06:24 | MR_ITS ---
FINAL REPORT TECHNIQUE: Multiplanar and multisequence MR imaging was performed through the abdomen before and after contrast administration utilizing an MR enterography protocol. CLINICAL HISTORY: PAIN, BILIOUS DRAIN OUTPUT AFTER CHOLECYSTECTOMY COMPARISON: CT dated 05/11/2025 FINDINGS: LUNG BASES: Clear. LIVER: There are mild fatty changes to the liver. There is mild increased enhancement near the gallbladder fossa, likely reflective of inflammatory related enhancement. There is a small fluid collection in the gallbladder fossa measuring 53 x 8 mm on axial images, may be due to biloma, seroma, or small hematoma. Inflammatory related stranding and enhancement is seen near the gallbladder fossa reflective of known acute cholecystitis and recent surgery. GALLBLADDER: The gallbladder is surgically absent. COMMON BILE DUCT: There is no evidence of obstruction or choledocholithiasis. SPLEEN: Normal. ADRENAL GLANDS: Normal. PANCREAS: Normal signal intensity. No evidence of acute pancreatitis. No pancreatic ductal dilation. KIDNEYS: No mass. No hydronephrosis. BOWEL: Adequate filling of the small bowel loops. No suspicious bowel edema and no suspicious bowel wall thickening. No definite strictures. No bowel fistulas. No obstruction. The terminal ileum is unremarkable. PERITONEUM/RETROPERITONEUM: No free fluid or free air. LYMPH NODES: No adenopathy. OTHER: There is stranding of the right upper quadrant abdominal wall with small fluid collection, favor to be compatible with postoperative changes from recent cholecystectomy. IMPRESSION: Interval cholecystectomy with mild inflammatory related enhancement near the gallbladder fossa, likely related to recent acute cholecystitis and postoperative changes. Tiny fluid collection in the gallbladder fossa may be related to seroma, hematoma, or less likely biloma. No large volume ascites to indicate bile leak. No evidence of biliary obstruction. Reviewed, Interpreted and Dictated by Vivian Sanchez MD Transcribed by Barb France Authenticated and [facility]
[2025-05-13] MEDS: LACTATED RINGERS 1000ML 1,000 ML 125 ML IV (06:47)
[2025-05-13 07:10] LABS: Cholesterol 123 mg/dl (140-200); HDL Cholesterol 28 mg/dl (40-60); Triglycerides 77 mg/dl (30-150)
[2025-05-13 08:21] LABS: Hematocrit 40.0 % (42.0-52.0); Hemoglobin 12.9 g/dL (14.1-18.0); Immature Granulocytes % 0.5 %; Mean Corpuscular HGB Conc 32.3 g/dL (31.8-35.4); Mean Corpuscular Hemoglobin 26.4 pg (27.0-31.2); Mean Corpuscular Volume 81.8 fl (80-94); Nucleated Red Blood Cells % 0 %; Platelet Count 267 K/mm3 (142-424); Red Blood Count 4.89 M/mm3 (4.60-6.20); Red Cell Distribution Width-SD 38.5 fL; White Blood Count 11.2 K/mm3 (4.8-10.8)
[2025-05-13 08:26] LABS: Albumin Level 3.2 g/dl (3.5-5.0); Chloride 97 mmol/L (98-107); Potassium 4.0 mmoL/L (3.5-5.1); Sodium 133 mmol/L (136-145)
[2025-05-13 08:29] LABS: Alanine Aminotransferase 292 U/L (12-78); Albumin/Globulin Ratio 1.1 (1.1-1.8); Alkaline Phosphatase 105 U/L (38-126); Anion Gap 11.0 mEq/L (5-15); Aspartate Amino Transferase 231 U/L (17-59); Bilirubin,Total 0.7 mg/dl (0.2-1.3); Blood Urea Nitrogen 9 mg/dl (9-20); Calcium 8.0 mg/dl (8.4-10.2); Carbon Dioxide 29 mmol/L (22.0-30.0); Creatinine Clearance Estimated 124 mL/min (50-200); Creatinine,Serum 0.80 mg/dl (0.66-1.25); Estimated Glomerular Filt Rate 112 ml/min (>60); GFR (African American) 136 ML/MIN (>60); Globulin 2.9 g/dL (1.3-3.2); Glucose 116 mg/dl (74-100); Total Protein,Serum 6.1 g/dl (6.3-8.2)
--- NOTE | 2025-05-13 08:38 | P.CONS_ITS ---
History of Present Illness History of present illness: Mr. Neville is a 30-year-old male presented to the ER with symptoms of abdominal discomfort and vomiting found to be having acute cholecystitis status post successful yet difficult cholecystectomy intraoperative bleeding status post hemostasis with concerning focal hepatic ischemia as per procedure note and pulmonary was called for further evaluation and management. [facility] Disclaimer: The information contained in this section may have been updated after the patient was seen, as this information can be updated by other users. Medical History (Updated 05/13/25 @ 09:42 by Lesli Leonard MD) Respiratory distress Dental infection Family History (Updated 05/11/25 @ 11:45 by Judy Hammer RN) Other No significant family history Social History (Updated 05/12/25 @ 07:09 by Eric Velázquez CRNA) Smoking Status: Current every day smoker tobacco type: cigarettes packs per day: 1 pack-years: 13 alcohol intake: current alcohol intake frequency: 0-2 drinks per day substance use type: denies use current occupational status: employed Travel in the last 8 weeks?: None adopted: No caregiver/support person: No foster care: No household members: none housing: house lives independently: Yes marital status: single number of children: 0 number of grandchildren: 0 Have you lived/traveled outside [place] in past 30 days?: No Contact w/someone who lives/traveled outside [place] past 30 days?: No Exposure to someone with infectious disease in past 14 days?: No Do you have a fever (greater than 100.4 F or 38 C)?: No Have you tested positive for COVID-19?: No Exposed to someone with COVID-19 in past 14 days?: No Do you have a sore throat?: No Do you have a cough?: No Do you have any weakness?: No Do you have any diarrhea?: No Are you experiencing any unusual bleeding?: No Do you have any muscle aches/pain?: No Do you have any abdominal pain?: No Are you experiencing loss of taste or smell?: No Review of Systems Constitutional Constitutional: Denies anorexia, Denies body ache(s) and Denies fatigue Eyes Eyes: Denies eye discharge, Denies dry eyes, Denies irritation and Denies itchy eyes ENT Ears, Nose, Mouth, and Throat: Denies epistaxis, Denies facial pain, Denies lip swelling and Denies throat swelling *Cardiovascular Cardiovascular: Denies dyspnea and Denies dyspnea on exertion *Respiratory Respiratory: Denies change in phlegm color, Reports chest congestion, Reports cough, Denies dyspnea, Denies dyspnea on exertion, Denies excessive phlegm production and Denies wheezing *Gastrointestinal Gastrointestinal: Reports abdominal pain Comments: Abdominal pain, improving *Musculoskeletal Musculoskeletal: Denies myalgias Psychiatric Psychiatric: Denies homicidal ideation and Denies suicidal ideation Endocrine Endocrine: Denies fatigue and Denies heat intolerance Hematologic/Lymphatic Hematologic/Lymphatic: Denies easy bleeding and Denies lymphadenopathy Allergic/Immunologic Allergic/Immunologic: Denies itchy eyes, Denies lip swelling, Denies throat swelling and Denies wheezing Pulmonology Exam Inpatient Vital signs and Labs for Last 24 Hours: Temp Pulse Resp BP Pulse Ox O2 Del Method O2 Flow Rate 98.2 F 91 H 22 166/108 H 92 L Room Air 2 05/12/25 19:45 05/13/25 06:00 05/13/25 06:00 05/13/25 06:00 05/13/25 06:00 05/13/25 06:00 05/12/25 15:15 Laboratory Results - last 24 hr 05/12/25 11:11: Urine Color Yellow, Urine Appearance Clear, Urine pH 5.5, Ur Specific [place] >= 1.030, Urine Protein 3+, Urine Glucose (UA) Negative, Urine Ketones 2+, Urine Blood Negative, Urine Nitrate Positive A, Urine Bilirubin Negative, Urine Urobilinogen 1.0, Ur Leukocyte Esterase Negative, Urine RBC 3-5, Urine WBC 5-10, Ur Squamous Epith Cells 3-5, Urine Bacteria 4+ A 05/12/25 13:30: WBC 14.8 H, RBC 5.32, Hgb 14.2, Hct 43.5, MCV 81.8, MCH 26.7 L, MCHC 32.6, RDW 12.7, Plt Count 318, MPV 10.1, Neut % (Auto) 86.6 H, Lymph % (Auto) 8.4 L, [place] % (Auto) 3.6, Eos % (Auto) 0.3, Baso % (Auto) 0.3, Neut # (Auto) 12.9 H, Lymph # (Auto) 1.2, [place] # (Auto) 0.5, Eos # (Auto) 0.0, Baso # (Auto) 0.1, Sodium 136, Potassium 4.2, Chloride 100, Carbon Dioxide 25, Anion Gap 15.2 H, BUN 12 D, Creatinine 1.10, Estimated Creat Clear 87, Estimated GFR 78, Est GFR ( Amer) 94, Glucose 138 H D, Calcium 8.1 L, Total Bilirubin 1.8 H, AST 192 H D, ALT 151 H D, Alkaline Phosphatase 77, Total Protein 7.0, A lbumin 3.7 D, Globulin 3.3 H, Albumin/Globulin Ratio 1.1 05/13/25 05:45: WBC 11.2 H, RBC 4.89, Hgb 12.9 L, Hct 40.0 L, MCV 81.8, MCH 26.4 L, MCHC 32.3, RDW 13.0, Plt Count 267, MPV 11.3 H, Neut % (Auto) 80.9 H, Lymph % (Auto) 10.0, [place] % (Auto) 6.8, Eos % (Auto) 1.5, Baso % (Auto) 0.3, Neut # (Auto) 9.0 H, Lymph # (Auto) 1.1, [place] # (Auto) 0.8, Eos # (Auto) 0.2, Baso # (Auto) 0.0, Sodium 133 L, Potassium 4.0, Chloride 97 L, Carbon Dioxide 29, Anion Gap 11.0, BUN 9, Creatinine 0.80 D, Estimated Creat Clear 124, Estimated GFR 112, Est GFR ( Amer) 136 D, Glucose 116 H, Calcium 8.0 L, Total Bilirubin 0.7, AST 231 H, ALT 292 H D, Alkaline Phosphatase 105, Total Protein 6.1 L, Albumin 3.2 L D, Globulin 2.9, Albumin/Globulin Ratio 1.1, Triglycerides 77, Cholesterol 123 L, LDL Cholesterol Direct 69.07 L, VLDL Cholesterol 15, HDL Cholesterol 28 L, Cholesterol/HDL Ratio 4.4 H I & O for Labs for Last 24 Hours: Intake & Output 05/10/25 05/11/25 05/12/25 05/13/25 23:59 23:59 23:59 23:59 Intake Total 1680 / 1800 4815.833 / 4815.833 1091.667 / 1091.667 Output Total 0 / 0 970 / 1450 1370 / 1370 Balance 1680 / 1800 3845.833 / 3365.833 -278.333 / -278.333 Weight 334 lb 2 oz 332 lb 1.6 oz 350 lb 9 oz Constitutional: Present moderate distress Head: Present normocephalic and atraumatic ENT: Present normal exam, normal oropharynx and mucous membranes moist Neck: Present normal inspection and full ROM Respiratory: Present diminished air movement, normal respiratory effort and able to speak in complete sentences; Absent prolonged expiratory phase, respiratory distress, wheezes or crackles Cardiac: Present S1/S2, Tachycardia and radial pulses present GI: Present soft and distention; Absent guarding Skin: Present intact; Absent cyanosis or jaundice Neuro: Present alert, awake and oriented x 3 Extremities: Present normal inspection; Absent clubbing or cyanosis Psychiatric: Present normal affect and cooperative Meds Home Medications and Allergies Home Medications ?Medication ?Instructions ?Recorded ?Confirmed ?Type No Known Home Medications 05/11/2504/21 History New Prescriptions to Start Prescriptions: Allergies Allergy/AdvReac Type Severity Reaction Status Date / Time No Known Allergies Allergy Verified 01/03/25 10:39 Results Laboratory Findings 05/13/25 05:45 05/13/25 05:45 Abnormal lab findings: Abnormal Labs 05/11/25 05/11/25 05/12/25 07:45 09:42 05:19 WBC 17.9 H 14.8 H Hgb Hct MCV 78.3 L 79.8 L MCH 26.7 L 26.4 L MPV 10.6 H Neut % (Auto) 83.7 H Lymph % (Auto) 8.7 L Neut # (Auto) 15.0 H 11.1 H Eos # (Auto) 0.7 H Sodium 135 L 135 L Chloride 97 L 97 L Anion Gap 15.7 H Glucose 128 H 103 H Calcium Total Bilirubin AST ALT Total Protein 8.9 H Albumin Globulin 4.4 H 3.8 H Albumin/Globulin Ratio 1.0 L Cholesterol LDL Cholesterol Direct HDL Cholesterol Cholesterol/HDL Ratio Urine Protein 1+ A Urine Nitrate Urine Bilirubin 1+ A Urine Bacteria 05/12/25 05/12/25 05/13/25 11:11 13:30 05:45 WBC 14.8 H 11.2 H Hgb 12.9 L Hct 40.0 L MCV MCH 26.7 L 26.4 L MPV 11.3 H Neut % (Auto) 86.6 H 80.9 H Lymph % (Auto) 8.4 L Neut # (Auto) 12.9 H 9.0 H Eos # (Auto) Sodium 133 L Chloride 97 L Anion Gap 15.2 H Glucose 138 H D 116 H Calcium 8.1 L 8.0 L Total Bilirubin 1.8 H AST 192 H D 231 H ALT 151 H D 292 H D Total Protein 6.1 L Albumin 3.2 L D Globulin 3.3 H Albumin/Globulin Ratio Cholesterol 123 L LDL Cholesterol Direct 69.07 L HDL Cholesterol 28 L Cholesterol/HDL Ratio 4.4 H Urine Protein Urine Nitrate Positive A Urine Bilirubin Urine Bacteria 4+ A Assessment and Plan *Assessment and plan (1) Leukocytosis: Status: Acute Category: Medical Code(s): D72.829 - Elevated white blood cell count, unspecified (2) Respiratory distress: Status: Acute Category: Medical Code(s): R06.03 - Acute respiratory distress Plan Mr. Neville is a 30-year-old male presented to the ER with symptoms of abdominal discomfort and vomiting found to be having acute cholecystitis status post successful yet difficult cholecystectomy intraoperative bleeding status post hemostasis with concerning focal hepatic ischemia as per procedure note and pulmonary was called for further evaluation and management. Patient is a current smoker. Denies any prior respiratory complaints. Never used any inhalers. Denies any personal history or family history of asthma. Surgery following, bilious output from the drain recommending MRCP . Currently receiving Zosyn as per surgery recommendation. On examination no distress. On RA, Saturating 90% and above on room air. Plan: Monitor clinically Incentive spirometry TID Follow with surgery recommendations
--- NOTE | 2025-05-13 08:43 | XR_ITS ---
FINAL REPORT CLINICAL HISTORY: SOB COMPARISON: None FINDINGS: PORTABLE CHEST The lungs are underinflated. The heart size is normal. The mediastinum is normal. There is no focal infiltrate or edema. Mild bibasilar atelectasis is present. There are no pleural effusions. There is no pneumothorax. There is no osseous abnormality. IMPRESSION: Underinflation, with mild bibasilar atelectasis. No areas of consolidation are identified. Reviewed, Interpreted and Dictated by Rubens Barnett MD Transcribed by Kaitlin Lord Authenticated and [facility]
[2025-05-13] MEDS: AMLODIPINE 5MG TABLET 5 MG PO (09:02)
--- NOTE | 2025-05-13 09:41 | P.PN_ITS ---
<Statement entered by Gautam Celis MD - 05/13/25 14:25> Rounded on patient after nurse practitioner. Personally examined and interviewed patient. Agree with exam findings and care plan as documented. After discussion with surgeon, will downgrade to [facility]. MRCP obtained that showed no biliary leak. Will leave bile drain in place pending improvement/decrease in output. Remove Stevenson today. Subjective *Date: 05/13/25 *Time: 11:41 Interval history: Patient overall doing well this morning. Complains of pain with movement. JONATHAN drain putting out bilious fluid, patient going for MRCP today for further evaluation. Patient CBC and CMP remained stable, continued elevated LFTs. Medical Exam Vital signs and Labs for Last 24 Hours: Vital Signs Temp Pulse Pulse Resp BP BP Pulse Ox 05/13/25 08:00 98.5 F 90 24 151/99 H 92 L 05/13/25 06:00 91 H 22 166/108 H 92 L 05/13/25 05:00 05/13/25 04:00 94 H 18 145/103 H 92 L 05/13/25 04:00 94 H 05/13/25 02:48 05/13/25 02:18 160/110 H 05/13/25 02:00 94 L 05/13/25 02:00 89 22 169/116 H 93 L 05/13/25 01:00 05/13/25 00:55 150/90 H 05/13/25 00:11 88 05/13/25 00:00 88 28 H 173/107 H 93 L 05/12/25 23:00 05/12/25 22:30 142/88 H 93 L 05/12/25 22:00 88 24 156/101 H 92 L 05/12/25 21:00 05/12/25 20:45 84 24 166/103 H 94 L 05/12/25 20:07 86 05/12/25 19:58 94 L 05/12/25 19:45 98.2 F 05/12/25 19:45 83 19 179/107 H 94 L 05/12/25 18:45 88 172/113 H 94 L 05/12/25 18:36 05/12/25 18:00 86 157/106 H 93 L 05/12/25 17:42 83 148/106 H 92 L 05/12/25 16:49 05/12/25 16:45 89 160/108 H 91 L 05/12/25 16:15 85 156/105 H 90 L 05/12/25 16:00 82 05/12/25 16:00 99.5 F 05/12/25 15:45 88 18 149/99 H 92 L 05/12/25 15:29 20 05/12/25 15:15 89 18 151/100 H 96 05/12/25 14:58 05/12/25 14:45 91 H 160/108 H 94 L 05/12/25 14:30 90 163/110 H 94 L 05/12/25 14:15 92 H 153/105 H 94 L 05/12/25 14:14 92 H 157/105 H 92 L 05/12/25 14:12 92 H 157/105 H 92 L 05/12/25 14:00 05/12/25 14:00 92 H 147/100 H 93 L 05/12/25 13:55 97.6 F 100 H 20 142/96 H 97 05/12/25 13:45 97.6 F 100 H 20 152/93 H 97 05/12/25 13:35 97.6 F 97 H 20 153/98 H 96 05/12/25 13:31 97.6 F 104 H 20 136/81 05/12/25 13:25 97.6 F 104 H 20 136/81 95 O2 Del Method O2 Flow Rate 05/13/25 08:00 Room Air 05/13/25 06:00 Room Air 05/13/25 05:00 Room Air 05/13/25 04:00 Room Air 05/13/25 04:00 05/13/25 02:48 Room Air 05/13/25 02:18 05/13/25 02:00 Room Air 05/13/25 02:00 Room Air 05/13/25 01:00 Room Air 05/13/25 00:55 05/13/25 00:11 05/13/25 00:00 Room Air 05/12/25 23:00 Room Air 05/12/25 22:30 Room Air 05/12/25 22:00 Room Air 05/12/25 21:00 Room Air 05/12/25 20:45 Room Air 05/12/25 20:07 05/12/25 19:58 Room Air 05/12/25 19:45 05/12/25 19:45 Room Air 05/12/25 18:45 Room Air 05/12/25 18:36 Room Air 05/12/25 18:00 Room Air 05/12/25 17:42 Room Air 05/12/25 16:49 Room Air 05/12/25 16:45 Room Air 05/12/25 16:15 Room Air 05/12/25 16:00 05/12/25 16:00 05/12/25 15:45 Room Air 05/12/25 15:29 05/12/25 15:15 Nasal Cannula 2 05/12/25 14:58 Nasal Cannula 2 05/12/25 14:45 Nasal Cannula 2 05/12/25 14:30 Nasal Cannula 2 05/12/25 14:15 Nasal Cannula 2 05/12/25 14:14 Nasal Cannula 05/12/25 14:12 Nasal Cannula 2 05/12/25 14:00 Room Air 05/12/25 14:00 Nasal Cannula 05/12/25 13:55 Simple Mask 2 05/12/25 13:45 Simple Mask 2 05/12/25 13:35 Simple Mask 2 05/12/25 13:31 05/12/25 13:25 Simple Mask 2 Intake and Output 05/12/25 05/13/25 05/13/25 23:59 07:59 15:59 Intake Total 1095.833 / 4815.833 1091.667 / 1091.667 Output Total 870 / 1450 1200 / 1430 230 / 1430 Balance 225.833 / 3365.833 -108.333 / -338.333 -230 / -338.333 Intake: Intake, Total IV Amount 1095.833 / 2834.346 8794.667 / 1091.667 Lactated Ringers 1000ML 1,000 995.833 / 995.833 991.667 / 991.667 ml @ 125 mls/hr IV .Q8H MARIO Rx# :[id number] Piperacillin/Tazo 4.5 gm In 0.9 100 / 200 100 / 100 % Sodium Chloride 100 ml @ 200 mls/hr IV Q8H MARIO Rx#:[id number] Output: Output, Urine Amount 750 / 750 450 / 450 Output, Urine Amount (Catheter) 420 / 420 Stevenson 420 / 420 Output, Drainage Amount 120 / 280 330 / 560 230 / 560 Right Abdomen 120 / 280 330 / 560 230 / 560 Other: Number of Unmeasured Voids 0 0 0 Weight 159.012 kg Patient Weight 05/13/25 23:59 Weight 159.012 kg Laboratory Results - last 24 hr 05/12/25 11:11: Urine Color Yellow, Urine Appearance Clear, Urine pH 5.5, Ur Specific [place] >= 1.030, Urine Protein 3+, Urine Glucose (UA) Negative, Urine Ketones 2+, Urine Blood Negative, Urine Nitrate Positive A, Urine Bilirubin Negative, Urine Urobilinogen 1.0, Ur Leukocyte Esterase Negative, Urine RBC 3-5, Urine WBC 5-10, Ur Squamous Epith Cells 3-5, Urine Bacteria 4+ A 05/12/25 13:30: WBC 14.8 H, RBC 5.32, Hgb 14.2, Hct 43.5, MCV 81.8, MCH 26.7 L, MCHC 32.6, RDW 12.7, Plt Count 318, MPV 10.1, Neut % (Auto) 86.6 H, Lymph % (Auto) 8.4 L, [place] % (Auto) 3.6, Eos % (Auto) 0.3, Baso % (Auto) 0.3, Neut # (Auto) 12.9 H, Lymph # (Auto) 1.2, [place] # (Auto) 0.5, Eos # (Auto) 0.0, Baso # (Auto) 0.1, Sodium 136, Potassium 4.2, Chloride 100, Carbon Dioxide 25, Anion Gap 15.2 H, BUN 12 D, Creatinine 1.10, Estimated Creat Clear 87, Estimated GFR 78, Est GFR ( Amer) 94, Glucose 138 H D, Calcium 8.1 L, Total Bilirubin 1.8 H, AST 192 H D, ALT 151 H D, Alkaline Phosphatase 77, Total Protein 7.0, Albumin 3.7 D, Globulin 3.3 H, Albumin/Globulin Ratio 1.1 05/13/25 05:45: WBC 11.2 H, RBC 4.89, Hgb 12.9 L, Hct 40.0 L, MCV 81.8, MCH 26.4 L, MCHC 32.3, RDW 13.0, Plt Count 267, MPV 11.3 H, Neut % (Auto) 80.9 H, Lymph % (Auto) 10.0, [place] % (Auto) 6.8, Eos % (Auto) 1.5, Baso % (Auto) 0.3, Neut # (Auto) 9.0 H, Lymph # (Auto) 1.1, [place] # (Auto) 0.8, Eos # (Auto) 0.2, Baso # (Auto) 0.0, Sodium 133 L, Potassium 4.0, Chloride 97 L, Carbon Dioxide 29, Anion Gap 11.0, BUN 9, Creatinine 0.80 D, Estimated Creat Clear 124, Estimated GFR 112, Est GFR ( Amer) 136 D, Glucose 116 H, Calcium 8.0 L, Total Bilirubin 0.7, AST 231 H, ALT 292 H D, Alkaline Phosphatase 105, Total Protein 6.1 L, Albumin 3.2 L D, Globulin 2.9, Albumin/Globulin Ratio 1.1, Triglycerides 77, Cholesterol 123 L, LDL Cholesterol Direct 69.07 L, VLDL Cholesterol 15, HDL Cholesterol 28 L, Cholesterol/HDL Ratio 4.4 H I & O for Labs for Last 24 Hours: Intake & Output 05/10/25 05/11/25 05/12/25 05/13/25 23:59 23:59 23:59 23:59 Intake Total 1680 / 1800 4815.833 / 4815.833 1091.667 / 1091.667 Output Total 0 / 0 970 / 1450 1430 / 1430 Balance 1680 / 1800 3845.833 / 3365.833 -338.333 / -338.333 Weight 151.557 kg 150.638 kg 159.012 kg Constitutional: Present no acute distress, morbidly obese, chronically ill appearing and cooperative Head: Present atraumatic Eyes: Present as per HPI ENT: Present normal exam Neck: Present normal inspection Respiratory: Present CTA bilaterally and normal respiratory effort; Absent wheezes or crackles Cardiac: Present Reg Rate and Rhythm and No Murmur GI: Present soft, tenderness and hypoactive bowel sounds; Absent distention Comments:: JONATHAN drain inserted from surgery, 4 times laparoscopic surgical sites with dressings Rectal (male): Present deferred (male): Present normal inspection Comment:: Stevenson catheter in place Extremities: Present normal inspection and full ROM; Absent edema Skin: Present intact and dry; Absent erythema Neuro: Present Grossly Intact, awake, oriented x 3 and moves all extremities Assessment and Plan *Assessment and plan (1) Acute cholecystitis: Status: Acute Category: Medical Code(s): K81.0 - Acute cholecystitis (2) Abdominal pain: Status: Acute Category: Medical Code(s): R10.9 - Unspecified abdominal pain (3) Leukocytosis: Status: Acute Category: Medical Code(s): D72.829 - Elevated white blood cell count, unspecified (4) Status post laparoscopic cholecystectomy: Status: Acute Category: Surgical Code(s): Z90.49 - Acquired absence of other specified parts of digestive tract (5) Transaminitis: Status: Acute Category: Medical Code(s): R74.01 - Elevation of levels of liver transaminase levels Plan Mr. Neville is a 30-year-old male who presented to the emergency department with complaints of abdominal pain, nausea, vomiting. He states that he has been feeling bad for approximately 4 days. He has been unable to tolerate significant p.o. intake. Workup in the emergency department was significant for elevated white count of 17.9, no anemia, no electrolyte abnormalities, normal kidney function. Imaging was obtained in the emergency department which showed acute cholecystitis. Right upper quadrant ultrasound was also obtained which was significant for cholelithiasis with findings suggestive of acute cholecystitis. General surgery was consulted. Hospital medicine was consulted for admission, I agreed to admit the patient. Plan of care as follows: #Acute cholecystitis #Abdominal pain #Leukocytosis #Status post laparoscopic cholecystectomy ? Patient went to the OR today for laparoscopic cholecystectomy, procedure took significantly longer than anticipated. Numerous unexpected adhesions. Patient has JONATHAN drain in place. 4 times laparoscopic sites clean dry and intact. Patient remaining hemodynamically stable. Patient moved to stepdown for closer monitoring. Continuous O2 and cardiac telemetry ordered, pain medication ordered. Monitoring for toxicity ? Tylenol ordered for mild pain, [place] 5/325 for moderate pain, morphine 4 mg every 4 hours as needed for severe pain. Zofran ordered as needed for nausea. ? Will advance diet as tolerated, clear liquid diet ordered. ? Initial white count elevated at 17.9, trending downward today to 11.2. Continuing Zosyn every 8 hours IV. ? Patient had Stevenson catheter placed during operative procedure, will continue for accurate I's and O's at this time. LR at 125 mL/H ordered for hydration. ? CBC, CMP, magnesium level ordered for the a.m. #Transaminitis ? Patient had repeat CMP postprocedure, LFTs elevated likely due to surgical procedure. Repeat LFTs this morning show upward trend, AST 231, ALT 292. Bilirubin normal. Patient's JONATHAN draining bilious fluid. MRCP ordered for further evaluation of surgical area/liver. Surgery following. Continue to monitor daily LFTs. Pending MRCP patient may necessitate transfer for higher level of care. Full code VTE?IPC's Ambulate as tolerated Clear liquid diet
--- NOTE | 2025-05-13 10:26 | PC.NURSE ---
pt refuses to turn completely in bed. pt educated on how to splint with cough and movement. pt advised that moving around with help with pain and advised that pt needed to attempt deep breaths as well, as not fully expanding put pt at increased pop for pneumonia
--- NOTE | 2025-05-13 10:36 | PC.NURSE ---
Pt ok to go to MRCP without RN per Josie Meek, ORDER DISPATCHER
--- NOTE | 2025-05-13 10:43 | PC.NURSE ---
1038 contacted med surg charge as she is in care rounds with providers. pt is currently sd pt, is [facility] w[facility]o RN transporting. 1040 per lety angel via radha foreman, ok for pt to go to [facility] w/o rn
[2025-05-13] MEDS: SODIUM CHLORIDE 0.9% 10ML SYR (RAD ONLY) 10 ML IV (12:37)
[2025-05-13] MEDS: 0.9 % SODIUM CHLORIDE 50 ML VIAL 40 ML IV (12:37)
[2025-05-13] MEDS: GADOTERIDOL INJ 10ML SYRINGE 10 ML IV (12:38)
[2025-05-13] MEDS: GADOTERIDOL INJ 20ML SYRINGE 20 ML IV (12:38)
--- NOTE | 2025-05-13 14:41 | HMH.PTEV ---
Physical Therapy Evaluation Rehab PT IP Evaluation Start: 05/13/25 10:42 Freq: ONCE Status: Active Protocol: Document 05/13/25 14:34 AMANDAMARY (Rec: 05/13/25 14:41 PHORNE [id number]) Subjective/History History History 30-year-old male with BMI of 52 who presented to the emergency department on 05/11/2025 with a 5-day history of unusual constellation of symptoms including inability to urinate, constipation, vomiting. He had some associated bilateral lower back pain. Examination in the emergency department revealed some left upper quadrant and left lower quadrant as well as suprapubic tenderness. Evaluation revealed a leukocytosis of 17, 900. He underwent CT scan which revealed findings consistent with acute cholecystitis without biliary ductal dilatation with a 2.4 cm gallstone with severe surrounding pericholecystic stranding with mild distention and gallbladder wall thickening. Surgery was consulted. No S/P lap CCY. Subjective Subjective Pt reports he lives with family and someone would be available to help him if necessary. He reports no AKIRA the home and he is generally independent with all mobility and ADLs at baseline without an AD. [facility] How much help from another person do you currently need... Turning from your None back to your side while in a flat bed without using bedrails? Moving from lying on A little back to sitting on the side of a flat bed without using bedrails? Moving to and from a None bed to a chair ( including a wheelchair)? Standing up from a None chair using your arms? (e.g., wheelchair, bedside chair) Walking in hospital None room? Climbing 3-5 steps None with a railing? Mobility Score 23 Mobility Level [facility] Mobility 7 Walk 25 feet or more Mobility Calculator Rehab PT IP Eval Objective Appearance Patient Behavior Appropriate Patient Orientation Person,Place,Time Difficulty following none instructions Speech Pattern Clear Ambulation Patient Able to Yes Ambulate Ambulation Observation IP General Gait No Deviations/Normal Pattern Observation Ambulation Distance 30 (feet) Ambulation Assistive None Device Ambulation Ability Independent Balance Ability to Arise Able, uses arms to help Sitting Balance Steady, safe Standing Balance Steady, wide stance Dynamic Sitting Good Balance Ability Dynamic Standing Good Balance Ability Transfers Bed Transfer Ability Contact Guard/Hand Hold Chair Transfer Independent Ability Sit to Stand Bed Independent Transfer Ability Sit to Stand Chair Independent Transfer Ability ROM All Extremities PT ROM Status WFL MMT All Extremities PT MMT WFL Rehab PT IP prob,goals,plan Problems Date of Evaluation: 05/13/25 Discharge Plan PT Discharge Plan Pt is currently appropriate to return home once medically stable, no current acute therapy needs at this time. Eval Complexity Eval Charge Codes 44086 - Moderate Complexity PHYSICIAN CERTIFICATION: I certify the specified therapy services for Westley Neville are required, authorized, and reviewed every 30 days.
--- NOTE | 2025-05-13 14:45 | P.PN_ITS ---
Subjective Narrative: Patient did work some with physical therapy. Exam Data for Last 24 hours Vital signs and Labs for Last 24 Hours: Temp Pulse Resp BP Pulse Ox O2 Del Method O2 Flow Rate 98.5 F 85 24 141/80 H 92 L Room Air 2 05/13/25 08:00 05/13/25 14:00 05/13/25 14:00 05/13/25 14:00 05/13/25 14:00 05/13/25 14:00 05/12/25 15:15 Laboratory Results - last 24 hr 05/12/25 11:11: Urine Color Yellow, Urine Appearance Clear, Urine pH 5.5, Ur Specific [place] >= 1.030, Urine Protein 3+, Urine Glucose (UA) Negative, Urine Ketones 2+, Urine Blood Negative, Urine Nitrate Positive A, Urine Bilirubin Negative, Urine Urobilinogen 1.0, Ur Leukocyte Esterase Negative, Urine RBC 3-5, Urine WBC 5-10, Ur Squamous Epith Cells 3-5, Urine Bacteria 4+ A 05/13/25 05:45: WBC 11.2 H, RBC 4.89, Hgb 12.9 L, Hct 40.0 L, MCV 81.8, MCH 26.4 L, MCHC 32.3, RDW 13.0, Plt Count 267, MPV 11.3 H, Neut % (Auto) 80.9 H, Lymph % (Auto) 10.0, [place] % (Auto) 6.8, Eos % (Auto) 1.5, Baso % (Auto) 0.3, Neut # (Auto) 9.0 H, Lymph # (Auto) 1.1, [place] # (Auto) 0.8, Eos # (Auto) 0.2, Baso # (Auto) 0.0, Sodium 133 L, Potassium 4.0, Chloride 97 L, Carbon Dioxide 29, Anion Gap 11.0, BUN 9, Creatinine 0.80 D, Estimated Creat Clear 124, Estimated GFR 112, Est GFR ( Amer) 136 D, Glucose 116 H, Calcium 8.0 L, Total Bilirubin 0.7, AST 231 H, ALT 292 H D, Alkaline Phosphatase 105, Total Protein 6.1 L, Albumin 3.2 L D, Globulin 2.9, Albumin/Globulin Ratio 1.1, Triglycerides 77, Cholesterol 123 L, LDL Cholesterol Direct 69.07 L, VLDL Cholesterol 15, HDL Cholesterol 28 L, Cholesterol/HDL Ratio 4.4 H I & O for Last 24 hours: Intake & Output 05/11/25 05/12/25 05/13/25 05/14/25 11:59 11:59 11:59 11:59 Intake Total 1100 / 1100 800 / 800 6314.583 / 6314.583 0 / 0 Output Total 0 / 0 2510 / 2510 950 / 950 Balance 1100 / 1100 800 / 800 3804.583 / 3804.583 -950 / -950 Weight 334 lb 2 oz 332 lb 1.6 oz 350 lb 9 oz *Routine Abdominal Exam Abdominal: Present tenderness Progress Note: A&P Assessment and plan (1) Acute cholecystitis: Status: Acute (2) Abdominal pain: Status: Acute (3) Leukocytosis: Status: Acute (4) Status post laparoscopic cholecystectomy: Status: Acute (5) Transaminitis: Status: Acute Assessment and Plan Assessment and Plan for All Diagnoses:: MRCP reveals no evidence of any bile duct injury or leak. Minimal tiny fluid collection. Likely bilious liquid from liver parenchyma within the gallbladder fossa such as from ducts of [place]. Therefore plan for continued external drainage and antibiotics at this time. May transfer out of ICU.
[2025-05-13] MEDS: LIDOCAINE 5% TRANSDERMAL PATCH 1 EACH TD (18:32)
[2025-05-13] MEDS: DOCUSATE SODIUM 250MG CAPSULE 250 MG PO (21:15)
[2025-05-14] VITALS (12 sets, daily range): BP systolic 141–161; BP diastolic 78–96; PULSE 70–101; RESP 14–18; TEMP 36.7–37; O2SAT 91–95; BMI 52.2
[2025-05-14] MEDS: PIPERACILLIN/TAZO 4.5 GM in 0.9 % SODIUM CHLORIDE 100 ML IV ×3 (02:07→18:24)
--- NOTE | 2025-05-14 04:35 | PC.NURSE ---
Pt is A&OX4 and has tolerated room air. Lap site dressings has remained c/d/i. JONATHAN drain has remained in place with 650ml out so far this shift. He did complain of abdominal pain once this shift and was medicated per. He has ambulated to the bathroom independently. No other complaints at this time, call light within reach.
[2025-05-14] MEDS: HYDROCODONE/APAP 5/325 MG TABLET 1 TAB PO ×3 (06:33→22:24)
[2025-05-14] MEDS: SENNA 8.6MG TABLET 17.2 MG PO (09:03)
[2025-05-14] MEDS: DOCUSATE SODIUM 250MG CAPSULE 250 MG PO (09:03)
[2025-05-14] MEDS: AMLODIPINE 5MG TABLET 5 MG PO (09:03)
--- NOTE | 2025-05-14 09:41 | EXP.PHA.PN ---
Subjective *Date: 05/14/25 *Time: 09:41 Medical Exam Vital signs and Labs for Last 24 Hours: Vital Signs Temp Pulse Pulse Resp BP BP Pulse Ox 05/14/25 08:58 05/14/25 08:00 72 05/14/25 07:36 98.4 F 82 16 161/89 H 05/14/25 06:42 05/14/25 05:00 05/14/25 04:07 85 05/14/25 04:00 98.4 F 86 14 151/92 H 93 L 05/14/25 03:00 05/14/25 01:00 05/14/25 00:07 95 H 05/14/25 00:00 98.6 F 101 H 14 158/94 H 91 L 05/13/25 23:00 05/13/25 21:00 05/13/25 20:00 95 H 05/13/25 20:00 98.5 F 95 H 14 152/98 H 93 L 05/13/25 20:00 05/13/25 18:40 05/13/25 17:05 05/13/25 16:00 98.1 F 93 H 16 150/82 H 94 L 05/13/25 14:00 85 24 141/80 H 92 L 05/13/25 13:32 05/13/25 12:34 95 H 24 165/95 H 93 L 05/13/25 12:00 97 H O2 Del Method 05/14/25 08:58 Room Air 05/14/25 08:00 05/14/25 07:36 05/14/25 06:42 Room Air 05/14/25 05:00 Room Air 05/14/25 04:07 05/14/25 04:00 Room Air 05/14/25 03:00 Room Air 05/14/25 01:00 Room Air 05/14/25 00:07 05/14/25 00:00 Room Air 05/13/25 23:00 Room Air 05/13/25 21:00 Room Air 05/13/25 20:00 05/13/25 20:00 Room Air 05/13/25 20:00 Room Air 05/13/25 18:40 Room Air 05/13/25 17:05 Room Air 05/13/25 16:00 Room Air 05/13/25 14:00 Room Air 05/13/25 13:32 Room Air 05/13/25 12:34 Room Air 05/13/25 12:00 Intake and Output 05/13/25 05/14/25 05/14/25 23:59 07:59 15:59 Intake Total 372.917 / 2091.667 100 / 100 Output Total 170 / 3570 860 / 950 90 / 950 Balance 202.917 / -1478.333 -760 / -850 -90 / -850 Intake: Intake, Total IV Amount 372.917 / 2091.667 100 / 100 Lactated Ringers 1000ML 1,000 272.917 / 1791.667 ml @ 125 mls/hr IV .Q8H MARIO Rx# :[id number] Piperacillin/Tazo 4.5 gm In 0.9 100 / 300 100 / 100 % Sodium Chloride 100 ml @ 200 mls/hr IV Q8H MARIO Rx#:[id number] Output: Output, Drainage Amount 170 / 1600 860 / 950 90 / 950 Right Abdomen 170 / 1600 860 / 950 90 / 950 Other: Weight 151.092 kg Patient Weight 05/14/25 23:59 Weight 151.092 kg I & O for Labs for Last 24 Hours: Intake & Output 05/11/25 05/12/25 05/13/25 05/14/25 23:59 23:59 23:59 23:59 Intake Total 1680 / 1800 4815.833 / 4815.833 2091.667 / 2091.667 100 / 100 Output Total 0 / 0 970 / 1450 3110 / 3570 950 / 950 Balance 1680 / 1800 3845.833 / 3365.833 -1018.333 / -1478.333 -850 / -850 Weight 151.557 kg 150.638 kg 159.012 kg 151.092 kg Microbiology Reports for the Last 24 Hours: Microbiology 05/12/25 11:11 Urine,Catheterized Urine Culture - Final No growth. The patient's infection will respond to the chosen ABx?: Yes Is the patient receiving the right drug, dose, and route?: Yes Could a more targeted ABx be ordered?: No (WBC DOWN, AFEBRILE. )
--- NOTE | 2025-05-14 09:44 | EXP.SURG.PN ---
Subjective Narrative: Patient states that he feels somewhat better. Still some right upper quadrant pain. No nausea. Exam Data for Last 24 hours Vital signs and Labs for Last 24 Hours: Temp Pulse Resp BP Pulse Ox O2 Del Method O2 Flow Rate 98.4 F 72 16 161/89 H 93 L Room Air 2 05/14/25 07:36 05/14/25 08:00 05/14/25 07:36 05/14/25 07:36 05/14/25 04:00 05/14/25 08:58 05/12/25 15:15 I & O for Last 24 hours: Intake & Output 05/11/25 05/12/25 05/13/25 05/14/25 11:59 11:59 11:59 11:59 Intake Total 1100 / 1100 800 / 800 6314.583 / 6314.583 572.917 / 572.917 Output Total 0 / 0 2510 / 2510 2520 / 2520 Balance 1100 / 1100 800 / 800 3804.583 / 3804.583 -1947.083 / -1947.083 Weight 334 lb 2 oz 332 lb 1.6 oz 350 lb 9 oz 333 lb 1.6 oz Microbiology Reports for the Last 24 Hours: Microbiology 05/12/25 11:11 Urine,Catheterized Urine Culture - Final No growth. *Routine Abdominal Exam Abdominal: Present soft Comments: Bilious JONATHAN output Progress Note: A&P Assessment and plan (1) Acute cholecystitis: Status: Acute (2) Abdominal pain: Status: Acute (3) Leukocytosis: Status: Acute (4) Status post laparoscopic cholecystectomy: Status: Acute (5) Transaminitis: Status: Acute Assessment and Plan Assessment and Plan for All Diagnoses:: Check labs. May advance to full liquid diet. Still with very high bilious JONATHAN drain output. MRCP yesterday revealed intact biliary tree with no leak or obstruction.
[2025-05-14 10:43] LABS: Hematocrit 39.4 % (42.0-52.0); Hemoglobin 12.6 g/dL (14.1-18.0); Immature Granulocytes % 0.7 %; Mean Corpuscular HGB Conc 32.0 g/dL (31.8-35.4); Mean Corpuscular Hemoglobin 26.3 pg (27.0-31.2); Mean Corpuscular Volume 82.1 fl (80-94); Nucleated Red Blood Cells % 0 %; Platelet Count 363 K/mm3 (142-424); Red Blood Count 4.80 M/mm3 (4.60-6.20); Red Cell Distribution Width-SD 38.5 fL; White Blood Count 10.0 K/mm3 (4.8-10.8)
[2025-05-14 11:04] LABS: Alanine Aminotransferase 163 U/L (12-78); Albumin Level 3.8 g/dl (3.5-5.0); Albumin/Globulin Ratio 1.0 (1.1-1.8); Alkaline Phosphatase 96 U/L (38-126); Anion Gap 11.7 mEq/L (5-15); Aspartate Amino Transferase 76 U/L (17-59); Bilirubin,Total 0.9 mg/dl (0.2-1.3); Blood Urea Nitrogen 8 mg/dl (9-20); Calcium 8.6 mg/dl (8.4-10.2); Carbon Dioxide 23 mmol/L (22.0-30.0); Chloride 98 mmol/L (98-107); Creatinine Clearance Estimated 120 mL/min (50-200); Creatinine,Serum 0.80 mg/dl (0.66-1.25); Estimated Glomerular Filt Rate 112 ml/min (>60); GFR (African American) 136 ML/MIN (>60); Globulin 3.9 g/dL (1.3-3.2); Glucose 99 mg/dl (74-100); Potassium 3.7 mmoL/L (3.5-5.1); Sodium 129 mmol/L (136-145); Total Protein,Serum 7.7 g/dl (6.3-8.2)
--- NOTE | 2025-05-14 13:18 | P.PN_ITS ---
Subjective *Date: 05/14/25 *Time: 13:31 Interval history: Passing gas. Improved sensation with urination. No longer having significant burning after starting phenazopyridine. Denies nausea or vomiting. Tolerating clear liquid diet. Still having significant bilious drainage from abdomen. Medical Exam Vital signs and Labs for Last 24 Hours: Vital Signs Temp Pulse Pulse Resp BP BP Pulse Ox 05/14/25 11:37 98.4 F 91 H 16 155/96 H 95 05/14/25 11:00 05/14/25 08:58 05/14/25 08:00 05/14/25 08:00 72 05/14/25 07:36 98.4 F 82 16 161/89 H 05/14/25 06:42 05/14/25 05:00 05/14/25 04:07 85 05/14/25 04:00 98.4 F 86 14 151/92 H 93 L 05/14/25 03:00 05/14/25 01:00 05/14/25 00:07 95 H 05/14/25 00:00 98.6 F 101 H 14 158/94 H 91 L 05/13/25 23:00 05/13/25 21:00 05/13/25 20:00 95 H 05/13/25 20:00 98.5 F 95 H 14 152/98 H 93 L 05/13/25 20:00 05/13/25 18:40 05/13/25 17:05 05/13/25 16:00 98.1 F 93 H 16 150/82 H 94 L 05/13/25 14:00 85 24 141/80 H 92 L 05/13/25 13:32 O2 Del Method 05/14/25 11:37 Room Air 05/14/25 11:00 Room Air 05/14/25 08:58 Room Air 05/14/25 08:00 Room Air 05/14/25 08:00 05/14/25 07:36 05/14/25 06:42 Room Air 05/14/25 05:00 Room Air 05/14/25 04:07 05/14/25 04:00 Room Air 05/14/25 03:00 Room Air 05/14/25 01:00 Room Air 05/14/25 00:07 05/14/25 00:00 Room Air 05/13/25 23:00 Room Air 05/13/25 21:00 Room Air 05/13/25 20:00 05/13/25 20:00 Room Air 05/13/25 20:00 Room Air 05/13/25 18:40 Room Air 05/13/25 17:05 Room Air 05/13/25 16:00 Room Air 05/13/25 14:00 Room Air 05/13/25 13:32 Room Air Intake and Output 05/13/25 05/14/25 05/14/25 23:59 07:59 15:59 Intake Total 372.917 / 2091.667 100 / 200 100 / 200 Output Total 170 / 3570 860 / 1450 590 / 1450 Balance 202.917 / -1478.333 -760 / -1250 -490 / -1250 Intake: Intake, Total IV Amount 372.917 / 2091.667 100 / 200 100 / 200 Lactated Ringers 1000ML 1,000 272.917 / 1791.667 ml @ 125 mls/hr IV .Q8H MARIO Rx# :[id number] Piperacillin/Tazo 4.5 gm In 0.9 100 / 300 100 / 200 100 / 200 % Sodium Chloride 100 ml @ 200 mls/hr IV Q8H MARIO Rx#:[id number] Output: Output, Urine Amount 200 / 200 Output, Drainage Amount 170 / 1600 860 / 1250 390 / 1250 Right Abdomen 170 / 1600 860 / 1250 390 / 1250 Other: Weight 151.092 kg Patient Weight 05/14/25 23:59 Weight 151.092 kg Laboratory Results - last 24 hr 05/14/25 10:15: WBC 10.0, RBC 4.80, Hgb 12.6 L, Hct 39.4 L, MCV 82.1, MCH 26.3 L , MCHC 32.0, RDW 12.8, Plt Count 363 D, MPV 10.2, Neut % (Auto) 72.7, Lymph % (Auto) 16.6, [place] % (Auto) 6.4, Eos % (Auto) 3.1, Baso % (Auto) 0.5, Neut # (Auto) 7.2, Lymph # (Auto) 1.7, [place] # (Auto) 0.6, Eos # (Auto) 0.3, Baso # (Auto) 0.1, Sodium 129 L, Potassium 3.7, Chloride 98, Carbon Dioxide 23, Anion Gap 11.7, BUN 8 L, Creatinine 0.80, Estimated Creat Clear 120, Estimated GFR 112, Est GFR ( Amer) 136, Glucose 99, Calcium 8.6, Total Bilirubin 0.9, AST 76 H D, ALT 163 H D, Alkaline Phosphatase 96, Total Protein 7.7 D, Albumin 3.8 D, Globulin 3.9 H, Albumin/Globulin Ratio 1.0 L I & O for Labs for Last 24 Hours: Intake & Output 05/11/25 05/12/25 05/13/25 05/14/25 23:59 23:59 23:59 23:59 Intake Total 1680 / 1800 4815.833 / 4815.833 2091.667 / 2091.667 200 / 200 Output Total 0 / 0 970 / 1450 3110 / 3570 1450 / 1450 Balance 1680 / 1800 3845.833 / 3365.833 -1018.333 / -1478.333 -1250 / -1250 Weight 151.557 kg 150.638 kg 159.012 kg 151.092 kg Microbiology Reports for the Last 24 Hours: Microbiology 05/12/25 11:11 Urine,Catheterized Urine Culture - Final No growth. Constitutional: Present no acute distress, morbidly obese, chronically ill appearing and cooperative Head: Present atraumatic Eyes: Present as per HPI ENT: Present normal exam Neck: Present normal inspection Respiratory: Present CTA bilaterally and normal respiratory effort; Absent wheezes or crackles Cardiac: Present Reg Rate and Rhythm and No Murmur GI: Present soft, tenderness and normal bowel sounds; Absent distention Comments:: JONATHAN drain inserted from surgery, bilious drainage in JONATHAN, 4 times laparoscopic surgical sites with dressings Rectal (male): Present deferred Extremities: Present normal inspection and full ROM; Absent edema Skin: Present intact and dry; Absent erythema Neuro: Present Grossly Intact, alert, awake, oriented x 3 and moves all extremities Assessment and Plan *Assessment and plan (1) Acute cholecystitis: Status: Acute Category: Medical Code(s): K81.0 - Acute cholecystitis (2) Abdominal pain: Status: Acute Category: Medical Code(s): R10.9 - Unspecified abdominal pain (3) Leukocytosis: Status: Acute Category: Medical Code(s): D72.829 - Elevated white blood cell count, unspecified (4) Status post laparoscopic cholecystectomy: Status: Acute Category: Surgical Code(s): Z90.49 - Acquired absence of other specified parts of digestive tract (5) Transaminitis: Status: Acute Category: Medical Code(s): R74.01 - Elevation of levels of liver transaminase levels (6) Morbid obesity with BMI of 50.0-59.9, adult: Status: Acute Category: Medical Code(s): E66.01 - Morbid (severe) obesity due to excess calories; Z68.43 - Body mass index [BMI] 50.0-59.9, adult (7) UTI (urinary tract infection): Status: Acute Category: Medical Code(s): N39.0 - Urinary tract infection, site not specified Plan Mr. Neville is a 30-year-old male who presented to the emergency department with complaints of abdominal pain, nausea, vomiting. He states that he has been feeling bad for approximately 4 days. He has been unable to tolerate significant p.o. intake. Workup in the emergency department was significant for elevated white count of 17.9, no anemia, no electrolyte abnormalities, normal kidney function. Imaging was obtained in the emergency department which showed acute cholecystitis. Right upper quadrant ultrasound was also obtained which was significant for cholelithiasis with findings suggestive of acute cholecystitis. General surgery assisting with care. Continues to require inpatient management. Still having significant bilious drainage. Dissipate discharge in the next day or 2. Would likely go home with JONATHAN drain. Problems addressed as follows: #Acute cholecystitis #Abdominal pain #Leukocytosis #Status post laparoscopic cholecystectomy # Transaminitis ? Patient went to the OR today for laparoscopic cholecystectomy, procedure took significantly longer than anticipated. Numerous unexpected adhesions. Patient has JONATHAN drain in place. 4 times laparoscopic sites clean dry and intact. Patient remaining hemodynamically stable. Patient moved to stepdown for closer monitoring. Continuous O2 and cardiac telemetry ordered, pain medication ordered. Monitoring for toxicity ? Tylenol ordered for mild pain, [place] 5/325 for moderate pain, morphine 4 mg every 4 hours as needed for severe pain. Zofran ordered as needed for nausea. ? Advance to full liquid diet - White count improved to 11.2. Hemoglobin 12.9. Kidney function normal with BUN 9, creatinine 0.8. LFTs showing mixed results. Bilirubin improved to 0.7. AST and ALT slightly up at 231 and 292. Alk phos normal at 103. - 1500 cc of drainage in JONATHAN over the past 24 hours. Continue to measure output - Continue Zosyn 4.5 g every 8 hours IV. Will complete at least 5 days of therapy for abdominal infection as well as suspected UTI -Repeat CBC, CMP, magnesium ordered for the morning - MRCP obtained yesterday, no significant biliary leak or damage to CBD noted. Will consider GI consult if continues to have significant output in JONATHAN drain that appears to be bile Suspected UTI: Urinalysis grossly abnormal on presentation and replacement of Stevenson catheter. Culture obtained from placement of Stevenson unfortunately was obtained after initiating antibiotics intraoperatively. Cultures negative however given positive leuk esterase, positive nitrate, significant white cells and patient's dysuria, clinically appears to have UTI. Complete 5 days of Zosyn above for UTI. Morbid obesity complicates all aspects of his care Full code VTE?IPC's Ambulate as tolerated Full liquid diet
--- NOTE | 2025-05-14 17:42 | PC.NURSE ---
pt resting supine in bed at this time. JONATHAN drain to R abd emptied numerous times. see I&o. lap sites remain c/d/i. complained of abd pain and was treated per SEP. no needs at this time. call light within reach.
[2025-05-14] MEDS: LIDOCAINE 5% TRANSDERMAL PATCH 1 EACH TD (18:23)
[2025-05-15] MEDS: PIPERACILLIN/TAZO 4.5 GM in 0.9 % SODIUM CHLORIDE 100 ML IV ×3 (01:42→17:26)
[2025-05-15] MEDS: HYDROCODONE/APAP 5/325 MG TABLET 1 TAB PO ×3 (03:11→15:21)
[2025-05-15 04:00] VITALS: BP 197/98; PULSE 77; RESP 16; TEMP 36.7; O2SAT 95; BMI 53.3
--- NOTE | 2025-05-15 06:12 | PC.NURSE ---
Pt A&OX4 and has tolerated room air. Dressing over lap sites have remained c/d/i. Farhan drain emptied multiple times this shift. He has ambulated room independently. Medicated for abdominal pain twice this shift. No other complaints at this time, call light within reach.
[2025-05-15 07:43] LABS: Hematocrit 40.5 % (42.0-52.0); Hemoglobin 12.6 g/dL (14.1-18.0); Immature Granulocytes % 0.9 %; Mean Corpuscular HGB Conc 31.1 g/dL (31.8-35.4); Mean Corpuscular Hemoglobin 25.4 pg (27.0-31.2); Mean Corpuscular Volume 81.7 fl (80-94); Nucleated Red Blood Cells % 0 %; Platelet Count 375 K/mm3 (142-424); Red Blood Count 4.96 M/mm3 (4.60-6.20); Red Cell Distribution Width-SD 36.9 fL; White Blood Count 9.5 K/mm3 (4.8-10.8)
[2025-05-15 07:50] LABS: Albumin Level 3.7 g/dl (3.5-5.0); Chloride 96 mmol/L (98-107); Sodium 132 mmol/L (136-145)
[2025-05-15 07:51] LABS: Potassium 3.3 mmoL/L (3.5-5.1)
[2025-05-15 07:53] LABS: Alanine Aminotransferase 159 U/L (12-78); Albumin/Globulin Ratio 1.0 (1.1-1.8); Alkaline Phosphatase 84 U/L (38-126); Anion Gap 9.3 mEq/L (5-15); Aspartate Amino Transferase 66 U/L (17-59); Bilirubin,Total 0.5 mg/dl (0.2-1.3); Blood Urea Nitrogen 7 mg/dl (9-20); Carbon Dioxide 30 mmol/L (22.0-30.0); Creatinine Clearance Estimated 106 mL/min (50-200); Creatinine,Serum 0.90 mg/dl (0.66-1.25); Estimated Glomerular Filt Rate 98 ml/min (>60); GFR (African American) 118 ML/MIN (>60); Globulin 3.7 g/dL (1.3-3.2); Total Protein,Serum 7.4 g/dl (6.3-8.2)
[2025-05-15 07:54] LABS: Calcium 8.6 mg/dl (8.4-10.2); Glucose 100 mg/dl (74-100); Magnesium 2.2 mg/dl (1.6-2.3)
[2025-05-15 08:00] VITALS: BP 157/87; PULSE 89; RESP 18; TEMP 37; O2SAT 97
[2025-05-15 08:17] VITALS: BMI 53.3
--- NOTE | 2025-05-15 09:20 | EXP.SURG.PN ---
Subjective Patient reports: no new complaints Narrative: Patient without any new complaints. Tolerating full liquids. Had a small bowel movement. Exam Data for Last 24 hours Vital signs and Labs for Last 24 Hours: Temp Pulse Resp BP Pulse Ox O2 Del Method O2 Flow Rate 98.6 F 89 18 157/87 H 97 Room Air 2 05/15/25 08:00 05/15/25 08:00 05/15/25 08:00 05/15/25 08:00 05/15/25 08:00 05/15/25 08:57 05/12/25 15:15 Laboratory Results - last 24 hr 05/14/25 10:15: WBC 10.0, RBC 4.80, Hgb 12.6 L, Hct 39.4 L, MCV 82.1, MCH 26.3 L, MCHC 32.0, RDW 12.8, Plt Count 363 D, MPV 10.2, Neut % (Auto) 72.7, Lymph % (Auto) 16.6, [place] % (Auto) 6.4, Eos % (Auto) 3.1, Baso % (Auto) 0.5, Neut # (Auto) 7.2, Lymph # (Auto) 1.7, [place] # (Auto) 0.6, Eos # (Auto) 0.3, Baso # (Auto) 0.1, Sodium 129 L, Potassium 3.7, Chloride 98, Carbon Dioxide 23, Anion Gap 11.7, BUN 8 L, Creatinine 0.80, Estimated Creat Clear 120, Estimated GFR 112, Est GFR ( Amer) 136, Glucose 99, Calcium 8.6, Total Bilirubin 0.9, AST 76 H D, ALT 163 H D, Alkaline Phosphatase 96, Total Protein 7.7 D, Albumin 3.8 D, Globulin 3.9 H, Albumin/Globulin Ratio 1.0 L 05/15/25 07:00: WBC 9.5, RBC 4.96, Hgb 12.6 L, Hct 40.5 L, MCV 81.7, MCH 25.4 L, MCHC 31.1 L, RDW 12.4, Plt Count 375, MPV 10.0, Neut % (Auto) 64.0, Lymph % (Auto) 22.6, [place] % (Auto) 7.9, Eos % (Auto) 4.0, Baso % (Auto) 0.6, Neut # (Auto) 6.1, Lymph # (Auto) 2.2, [place] # (Auto) 0.8, Eos # (Auto) 0.4, Baso # (Auto) 0.1, Sodium 132 L, Potassium 3.3 L, Chloride 96 L, Carbon Dioxide 30, Anion Gap 9.3, BUN 7 L, Creatinine 0.90, Estimated Creat Clear 106, Estimated GFR 98, Est GFR ( Amer) 118, Glucose 100, Calcium 8.6, Magnesium 2.2, Total Bilirubin 0.5, AST 66 H, ALT 159 H, Alkaline Phosphatase 84, Total Protein 7.4, Albumin 3.7, Globulin 3.7 H, Albumin/Globulin Ratio 1.0 L I & O for Last 24 hours: Intake & Output 05/12/25 05/13/25 05/14/25 05/15/25 11:59 11:59 11:59 11:59 Intake Total 800 / 800 6314.583 / 6314.583 572.917 / 540.643 7009 / 1200 Output Total 0 / 0 2510 / 2510 2870 / 2870 2500 / 2500 Balance 800 / 800 3804.583 / 3804.583 -2297.083 / -2297.083 -1300 / -1300 Weight 332 lb 1.6 oz 350 lb 9 oz 333 lb 1.6 oz 340 lb Microbiology Reports for the Last 24 Hours: Microbiology 05/12/25 11:11 Urine,Catheterized Urine Culture - Final No growth. *Routine Abdominal Exam Abdominal: Present soft Comments: Mild tenderness. JONATHAN drain with thin bilious appearing liquid Progress Note: A&P Assessment and plan (1) Acute cholecystitis: Status: Acute (2) Abdominal pain: Status: Acute (3) Leukocytosis: Status: Acute (4) Status post laparoscopic cholecystectomy: Status: Acute (5) Transaminitis: Status: Acute (6) Morbid obesity with BMI of 50.0-59.9, adult: Status: Acute (7) UTI (urinary tract infection): Status: Acute Assessment and Plan Assessment and Plan for All Diagnoses:: Laboratory studies improving. Continued with thin bilious liquid from JONATHAN drain. Plan for n.p.o. after midnight for potential HIDA and/or ERCP.
[2025-05-15] MEDS: SENNA 8.6MG TABLET 17.2 MG PO (09:33)
[2025-05-15] MEDS: AMLODIPINE 5MG TABLET 5 MG PO (09:33)
[2025-05-15] MEDS: DOCUSATE SODIUM 250MG CAPSULE 250 MG PO (09:33)
[2025-05-15] MEDS: POTASSIUM CHLORIDE 20MEQ TAB 40 MEQ PO ×2 (10:19→12:54)
--- NOTE | 2025-05-15 11:58 | P.PN_ITS ---
Subjective *Date: 05/15/25 *Time: 12:02 Interval history: The patient is seen and evaluated today with nursing staff (Carlee) at bedside. The patient reports adequate pain control. Nursing staff report that he remains afebrile with some tachycardia and elevated blood pressures. He is saturating appropriately on room air. We have reviewed, discussed and I have personally interpreted his morning labs with a CBC identified WBC 9.5, hemoglobin 12.6, hematocrit 40.5 and normal platelets 375. His electrolytes identified sodium 132 with potassium 3.3 and replacement therapy ordered. His creatinine is normal at 0.9. He is tolerating his IV antibiotic therapy with no adverse events. General surgery continues to follow. His JONATHAN drain identified bilious thin fluid. Exam Data for Last 24 hours Vital signs and Labs for Last 24 Hours: Temp Pulse Resp BP Pulse Ox O2 Del Method O2 Flow Rate 98.6 F 89 18 157/87 H 97 Room Air 2 05/15/25 08:00 05/15/25 08:00 05/15/25 08:00 05/15/25 08:00 05/15/25 08:00 05/15/25 08:57 05/12/25 15:15 Laboratory Results - last 24 hr 05/15/25 07:00: WBC 9.5, RBC 4.96, Hgb 12.6 L, Hct 40.5 L, MCV 81.7, MCH 25.4 L, MCHC 31.1 L, RDW 12.4, Plt Count 375, MPV 10.0, Neut % (Auto) 64.0, Lymph % (Auto) 22.6, [place] % (Auto) 7.9, Eos % (Auto) 4.0, Baso % (Auto) 0.6, Neut # (Auto) 6.1, Lymph # (Auto) 2.2, [place] # (Auto) 0.8, Eos # (Auto) 0.4, Baso # (Auto) 0.1, Sodium 132 L, Potassium 3.3 L, Chloride 96 L, Carbon Dioxide 30, Anion Gap 9.3, BUN 7 L, Creatinine 0.90, Estimated Creat Clear 106, Estimated GFR 98, Est GFR ( Amer) 118, Glucose 100, Calcium 8.6, Magnesium 2.2, Total Bilirubin 0.5, AST 66 H, ALT 159 H, Alkaline Phosphatase 84, Total Protein 7.4, Albumin 3.7, Globulin 3.7 H, Albumin/Globulin Ratio 1.0 L I & O for Last 24 hours: Intake & Output 05/12/25 05/13/25 05/14/25 05/15/25 23:59 23:59 23:59 23:59 Intake Total 4815.833 / 4815.833 2091.667 / 2091.667 660 / 660 840 / 840 Output Total 970 / 1450 3110 / 3570 2670 / 2830 1180 / 1180 Balance 3845.833 / 3365.833 -1018.333 / -1478.333 -2010 / -2170 -340 / -340 Weight 150.638 kg 159.012 kg 151.092 kg 154.221 kg Constitutional Constitutional: no acute distress, morbidly obese and cooperative *Routine HEENT Exam ENT: Present mucous membranes moist *Routine Respiratory Exam Respiratory: Present rhonchi, normal respiratory effort and symmetric chest movement; Absent respiratory distress *Routine Cardiovascular Exam Cardiovascular: Present RRR *Routine Abdominal Exam Abdominal: Present soft, normoactive bowel sounds and drain; Absent distended *Routine Extremities Exam Extremities: Absent edema *Routine Skin Exam Skin: Absent rash *Routine Neurological Exam Neurological: Present alert, oriented X3, moving all extremities, vision grossly intact, hearing grossly intact and normal speech; Absent sensory deficit or motor deficit Routine Psychiatric Exam Psychiatric: Present normal thought process and cooperative Assessment and Plan *Assessment and plan (1) Acute cholecystitis: Status: Acute Category: Medical Code(s): K81.0 - Acute cholecystitis (2) Abdominal pain: Status: Acute Category: Medical Code(s): R10.9 - Unspecified abdominal pain (3) Leukocytosis: Status: Acute Category: Medical Code(s): D72.829 - Elevated white blood cell count, unspecified (4) Status post laparoscopic cholecystectomy: Status: Acute Category: Surgical Code(s): Z90.49 - Acquired absence of other specified parts of digestive tract (5) Transaminitis: Status: Acute Category: Medical Code(s): R74.01 - Elevation of levels of liver transaminase levels (6) Morbid obesity with BMI of 50.0-59.9, adult: Status: Acute Category: Medical Code(s): E66.01 - Morbid (severe) obesity due to excess calories; Z68.43 - Body mass index [BMI] 50.0-59.9, adult (7) UTI (urinary tract infection): Status: Acute Category: Medical Code(s): N39.0 - Urinary tract infection, site not specified Plan Mr. Neville is a 30-year-old male who presented to the emergency department with complaints of abdominal pain, nausea, vomiting. He underwent laparoscopic cholecystectomy and is continuing with postoperative course including JONATHAN drain evaluations, assessing for diet tolerance and bowel elimination. Problems addressed as follows: Acute cholecystitis Postoperative seroma s/p laparoscopic cholecystectomy (05/12/2025) MRCP (05/13/2025): Tiny fluid collection in gallbladder fossa JONATHAN drain care with bilious output noted General Surgery following Trending labs and inflammatory markers IV antibiotic therapy Zosyn day #5 Pain control Parenterally administered controlled substance for comfort care Bowel regiment Accurate I's and O's Advancing diet as tolerated Encouraging ambulation BMI 53 Nutrition education Calorie appropriate diet Outpatient follow-up with PCP to discuss current strategies At risk for sleep apnea Complicates all aspects of his care DVT prophylaxis: SCD's CODE STATUS: Full code POA: Significant other The patient is hospitalized today for with above diagnoses complicated by his BMI 53. We appreciate surgeon evaluation, surgical intervention and post care recommendations. Case management is assisting with discharge needs. Barriers to discharge currently include identifying advance diet tolerance, bowel lamination and home energy consultant recommendations. Expected day of discharge over the next day or 2.
[2025-05-15 12:00] VITALS: BP 132/89; PULSE 89; RESP 18; TEMP 36.8; O2SAT 96
[2025-05-15] MEDS: ONDANSETRON 4MG/2ML VIAL 4 MG IV (15:21)
[2025-05-15 16:00] VITALS: BP 130/86; PULSE 83; RESP 20; TEMP 36.7; O2SAT 96
[2025-05-15] MEDS: LIDOCAINE 5% TRANSDERMAL PATCH 1 EACH TD (17:26)
[2025-05-15 20:00] VITALS: BP 148/97; PULSE 76; RESP 16; TEMP 36.7; O2SAT 97
[2025-05-15] MEDS: METOPROLOL TARTRATE 25MG TABLET 25 MG PO (20:32)
[2025-05-15] MEDS: MELATONIN 5MG TABLET 5 MG PO (20:33)
[2025-05-15] MEDS: CALCIUM CARBONATE 500MG CHEWTAB 500 MG PO (21:00)
[2025-05-16] VITALS (16 sets, daily range): BP systolic 113–170; BP diastolic 66–107; PULSE 62–91; RESP 16–22; TEMP 36.4–36.9; O2SAT 92–97; BMI 52.9
[2025-05-16] MEDS: HYDROCODONE/APAP 5/325 MG TABLET 1 TAB PO ×3 (00:21→18:35)
[2025-05-16] MEDS: PIPERACILLIN/TAZO 4.5 GM in 0.9 % SODIUM CHLORIDE 100 ML IV (02:31)
[2025-05-16 06:20] LABS: Hematocrit 41.8 % (42.0-52.0); Hemoglobin 13.2 g/dL (14.1-18.0); Immature Granulocytes % 1.0 %; Mean Corpuscular HGB Conc 31.6 g/dL (31.8-35.4); Mean Corpuscular Hemoglobin 25.8 pg (27.0-31.2); Mean Corpuscular Volume 81.8 fl (80-94); Nucleated Red Blood Cells % 0 %; Platelet Count 437 K/mm3 (142-424); Red Blood Count 5.11 M/mm3 (4.60-6.20); Red Cell Distribution Width-SD 37.5 fL; White Blood Count 9.3 K/mm3 (4.8-10.8)
[2025-05-16 06:38] LABS: Albumin Level 3.0 g/dl (3.5-5.0); Chloride 99 mmol/L (98-107); Potassium 4.0 mmoL/L (3.5-5.1); Sodium 134 mmol/L (136-145)
[2025-05-16 06:41] LABS: Alanine Aminotransferase 279 U/L (12-78); Albumin/Globulin Ratio 0.6 (1.1-1.8); Alkaline Phosphatase 89 U/L (38-126); Anion Gap 11.0 mEq/L (5-15); Aspartate Amino Transferase 158 U/L (17-59); Bilirubin,Total 0.6 mg/dl (0.2-1.3); Blood Urea Nitrogen 8 mg/dl (9-20); Calcium 8.9 mg/dl (8.4-10.2); Carbon Dioxide 28 mmol/L (22.0-30.0); Creatinine Clearance Estimated 96 mL/min (50-200); Creatinine,Serum 1.00 mg/dl (0.66-1.25); Estimated Glomerular Filt Rate 87 ml/min (>60); GFR (African American) 105 ML/MIN (>60); Globulin 4.7 g/dL (1.3-3.2); Glucose 91 mg/dl (74-100); Magnesium 2.3 mg/dl (1.6-2.3); Total Protein,Serum 7.7 g/dl (6.3-8.2)
--- NOTE | 2025-05-16 07:50 | P.PN_ITS ---
Subjective Narrative: Patient states that he does feel better. Bowels are moving. Exam Data for Last 24 hours Vital signs and Labs for Last 24 Hours: Temp Pulse Resp BP Pulse Ox O2 Del Method O2 Flow Rate 97.7 F 64 18 170/101 H 92 L Room Air 2 05/16/25 04:00 05/16/25 04:00 05/16/25 04:00 05/16/25 04:00 05/16/25 04:00 05/16/25 06:43 05/12/25 15:15 Laboratory Results - last 24 hr 05/15/25 07:00: WBC 9.5, RBC 4.96, Hgb 12.6 L, Hct 40.5 L, MCV 81.7, MCH 25.4 L, MCHC 31.1 L, RDW 12.4, Plt Count 375, MPV 10.0, Neut % (Auto) 64.0, Lymph % (Auto) 22.6, [place] % (Auto) 7.9, Eos % (Auto) 4.0, Baso % (Auto) 0.6, Neut # (Auto) 6.1, Lymph # (Auto) 2.2, [place] # (Auto) 0.8, Eos # (Auto) 0.4, Baso # (Auto) 0.1, Sodium 132 L, Potassium 3.3 L, Chloride 96 L, Carbon Dioxide 30, Anion Gap 9.3, BUN 7 L, Creatinine 0.90, Estimated Creat Clear 106, Estimated GFR 98, Est GFR ( Amer) 118, Glucose 100, Calcium 8.6, Magnesium 2.2, Total Bilirubin 0.5, AST 66 H, ALT 159 H, Alkaline Phosphatase 84, Total Protein 7.4, Albumin 3.7, Globulin 3.7 H, Albumin/Globulin Ratio 1.0 L 05/16/25 05:54: WBC 9.3, RBC 5.11, Hgb 13.2 L, Hct 41.8 L, MCV 81.8, MCH 25.8 L, MCHC 31.6 L, RDW 12.5, Plt Count 437 H, MPV 9.7, Neut % (Auto) 61.1, Lymph % (Auto) 23.7, [place] % (Auto) 7.7, Eos % (Auto) 5.7, Baso % (Auto) 0.8, Neut # (Auto) 5.7, Lymph # (Auto) 2.2, [place] # (Auto) 0.7, Eos # (Auto) 0.5 H, Baso # (Auto) 0.1, Sodium 134 L, Potassium 4.0 D, Chloride 99, Carbon Dioxide 28, Anion Gap 11.0, BUN 8 L, Creatinine 1.00, Estimated Creat Clear 96, Estimated GFR 87, Est GFR ( Amer) 105, Glucose 91, Calcium 8.9, Magnesium 2.3, Total Bilirubin 0.6, AST 158 H D, ALT 279 H D, Alkaline Phosphatase 89, Total Protein 7.7, Albumin 3.0 L D, Globulin 4.7 H, Albumin/Globulin Ratio 0.6 L I & O for Last 24 hours: Intake & Output 05/13/25 05/14/25 05/15/25 05/16/25 11:59 11:59 11:59 11:59 Intake Total 6314.583 / 6314.583 572.917 / 927.163 4968 / 1300 920 / 920 Output Total 2510 / 2510 2870 / 2870 2550 / 2550 180 / 180 Balance 3804.583 / 3804.583 -2297.083 / -2297.083 -1250 / -1250 740 / 740 Weight 350 lb 9 oz 333 lb 1.6 oz 340 lb 337 lb 6.4 oz *Routine Abdominal Exam Abdominal: Present soft Comments: JONATHAN with bilious output. Significantly decreased volume. Progress Note: A&P Assessment and plan (1) Acute cholecystitis: Status: Acute (2) Abdominal pain: Status: Acute (3) Leukocytosis: Status: Acute (4) Status post laparoscopic cholecystectomy: Status: Acute (5) Transaminitis: Status: Acute (6) Morbid obesity with BMI of 50.0-59.9, adult: Status: Acute (7) UTI (urinary tract infection): Status: Acute Assessment and Plan Assessment and Plan for All Diagnoses:: GI consult today for possible ERCP.
--- NOTE | 2025-05-16 07:54 | EXP.PN ---
Subjective *Date: 05/16/25 *Time: 15:58 Interval history: The patient is seen and evaluated with nursing at bedside (S[facility]). Nursing staff report that he remains afebrile with stable heart rates and elevated blood pressures. He is saturating appropriately on room air. Nursing staff report he continues with bilious JONATHAN drain output. GI applications sales consultant is due to see the patient today. Exam Data for Last 24 hours Vital signs and Labs for Last 24 Hours: Temp Pulse Resp BP Pulse Ox O2 Del Method O2 Flow Rate 97.7 F 64 18 170/101 H 92 L Room Air 2 05/16/25 04:00 05/16/25 04:00 05/16/25 04:00 05/16/25 04:00 05/16/25 04:00 05/16/25 06:43 05/12/25 15:15 Laboratory Results - last 24 hr 05/15/25 07:00: WBC 9.5, RBC 4.96, Hgb 12.6 L, Hct 40.5 L, MCV 81.7, MCH 25.4 L, MCHC 31.1 L, RDW 12.4, Plt Count 375, MPV 10.0, Neut % (Auto) 64.0, Lymph % (Auto) 22.6, Leslie % (Auto) 7.9, Eos % (Auto) 4.0, Baso % (Auto) 0.6, Neut # (Auto) 6.1, Lymph # (Auto) 2.2, Leslie # (Auto) 0.8, Eos # (Auto) 0.4, Baso # (Auto) 0.1, Sodium 132 L, Potassium 3.3 L, Chloride 96 L, Carbon Dioxide 30, Anion Gap 9.3, BUN 7 L, Creatinine 0.90, Estimated Creat Clear 106, Estimated GFR 98, Est GFR ( Amer) 118, Glucose 100, Calcium 8.6, Magnesium 2.2, Total Bilirubin 0.5, AST 66 H, ALT 159 H, Alkaline Phosphatase 84, Total Protein 7.4, Albumin 3.7, Globulin 3.7 H, Albumin/Globulin Ratio 1.0 L 05/16/25 05:54: WBC 9.3, RBC 5.11, Hgb 13.2 L, Hct 41.8 L, MCV 81.8, MCH 25.8 L, MCHC 31.6 L, RDW 12.5, Plt Count 437 H, MPV 9.7, Neut % (Auto) 61.1, Lymph % (Auto) 23.7, Leslie % (Auto) 7.7, Eos % (Auto) 5.7, Baso % (Auto) 0.8, Neut # (Auto) 5.7, Lymph # (Auto) 2.2, Leslie # (Auto) 0.7, Eos # (Auto) 0.5 H, Baso # (Auto) 0.1, Sodium 134 L, Potassium 4.0 D, Chloride 99, Carbon Dioxide 28, Anion Gap 11.0, BUN 8 L, Creatinine 1.00, Estimated Creat Clear 96, Estimated GFR 87, Est GFR ( Amer) 105, Glucose 91, Calcium 8.9, Magnesium 2.3, Total Bilirubin 0.6, AST 158 H D, ALT 279 H D, Alkaline Phosphatase 89, Total Protein 7.7, Albumin 3.0 L D, Globulin 4.7 H, Albumin/Globulin Ratio 0.6 L I & O for Last 24 hours: Intake & Output 05/13/25 05/14/25 05/15/25 05/16/25 23:59 23:59 23:59 23:59 Intake Total 2091.667 / 2091.667 660 / 660 1660 / 1660 100 / 100 Output Total 3110 / 3570 2670 / 2830 1260 / 1280 100 / 100 Balance -1018.333 / -1478.333 -2010 / -2170 400 / 380 0 / 0 Weight 159.012 kg 151.092 kg 154.221 kg 153.042 kg Constitutional Constitutional: no acute distress, morbidly obese and cooperative *Routine HEENT Exam ENT: Present mucous membranes moist *Routine Respiratory Exam Respiratory: Present rhonchi, normal respiratory effort and symmetric chest movement; Absent respiratory distress *Routine Cardiovascular Exam Cardiovascular: Present RRR *Routine Abdominal Exam Abdominal: Present soft, normoactive bowel sounds and drain; Absent distended *Routine Extremities Exam Extremities: Absent edema *Routine Skin Exam Skin: Absent rash *Routine Neurological Exam Neurological: Present alert, oriented X3, moving all extremities, vision grossly intact, hearing grossly intact and normal speech; Absent sensory deficit or motor deficit Routine Psychiatric Exam Psychiatric: Present normal thought process and cooperative Assessment and Plan *Assessment and plan (1) Acute cholecystitis: Status: Acute Category: Medical Code(s): K81.0 - Acute cholecystitis (2) Abdominal pain: Status: Acute Category: Medical Code(s): R10.9 - Unspecified abdominal pain (3) Leukocytosis: Status: Acute Category: Medical Code(s): D72.829 - Elevated white blood cell count, unspecified (4) Status post laparoscopic cholecystectomy: Status: Acute Category: Surgical Code(s): Z90.49 - Acquired absence of other specified parts of digestive tract (5) Transaminitis: Status: Acute Category: Medical Code(s): R74.01 - Elevation of levels of liver transaminase levels (6) Morbid obesity with BMI of 50.0-59.9, adult: Status: Acute Category: Medical Code(s): E66.01 - Morbid (severe) obesity due to excess calories; Z68.43 - Body mass index [BMI] 50.0-59.9, adult (7) UTI (urinary tract infection): Status: Acute Category: Medical Code(s): N39.0 - Urinary tract infection, site not specified Plan Mr. Neville is a 30-year-old male who presented to the emergency department with complaints of abdominal pain, nausea, vomiting. He underwent laparoscopic cholecystectomy and is continuing with postoperative course including JONATHAN drain evaluations, gastroenterology evaluation pending, assessing for diet tolerance and bowel elimination. Problems addressed as follows: Acute cholecystitis Postoperative seroma s/p laparoscopic cholecystectomy (05/12/2025) MRCP (05/13/2025): Tiny fluid collection in gallbladder fossa JONATHAN drain care with bilious output noted General Surgery following Gastroenterology consult pending Consideration for ERCP Trending labs and inflammatory markers IV antibiotic therapy Zosyn day #6 Pain control Parenterally administered controlled substance for comfort care Bowel regiment Accurate I's and O's Advancing diet as tolerated Encouraging ambulation Hypertension Routine blood pressure monitoring Dihydropyridine calcium channel elmer therapy Beta-elmer therapy ARB therapy BMI 53 Nutrition education Calorie appropriate diet Outpatient follow-up with PCP to discuss current strategies At risk for sleep apnea Complicates all aspects of his care DVT prophylaxis: SCD's CODE STATUS: Full code POA: Significant other The patient is hospitalized day 5 for with above diagnoses complicated by his BMI 53. We appreciate applications sales consultant evaluations, plans for procedural intervention and post care recommendations. Case management is assisting with discharge needs. Barriers to discharge currently include applications sales consultant recommendations, procedure recommendations, identifying advance diet tolerance, bowel elimination. Expected day of discharge cannot be determined at present time.
[2025-05-16] MEDS: DOCUSATE SODIUM 250MG CAPSULE 250 MG PO (08:58)
[2025-05-16] MEDS: METOPROLOL TARTRATE 25MG TABLET 25 MG PO ×2 (08:59→21:05)
[2025-05-16] MEDS: AMLODIPINE 5MG TABLET 5 MG PO (08:59)
[2025-05-16] MEDS: IRBESARTAN 150MG TAB 150 MG PO (08:59)
[2025-05-16] MEDS: SENNA 8.6MG TABLET 17.2 MG PO (08:59)
--- NOTE | 2025-05-16 14:29 | EXP.ANES.CKL ---
[facility] Disclaimer: The information contained in this section may have been updated after the patient was seen, as this information can be updated by other users. Medical History (Updated 05/14/25 @ 13:21 by Gautam Celis MD) Respiratory distress Dental infection Family History (Updated 05/11/25 @ 11:45 by Judy Hammer RN) Other No significant family history Social History (Updated 05/12/25 @ 07:09 by Eric Velázquez CRNA) Smoking Status: Current every day smoker tobacco type: cigarettes packs per day: 1 pack-years: 13 alcohol intake: current alcohol intake frequency: 0-2 drinks per day substance use type: denies use current occupational status: employed Travel in the last 8 weeks?: None adopted: No caregiver/support person: No foster care: No household members: none housing: house lives independently: Yes marital status: single number of children: 0 number of grandchildren: 0 Have you lived/traveled outside [place] in past 30 days?: No Contact w/someone who lives/traveled outside US past 30 days?: No Exposure to someone with infectious disease in past 14 days?: No Do you have a fever (greater than 100.4 F or 38 C)?: No Have you tested positive for COVID-19?: No Exposed to someone with COVID-19 in past 14 days?: No Do you have a sore throat?: No Do you have a cough?: No Do you have any weakness?: No Do you have any diarrhea?: No Are you experiencing any unusual bleeding?: No Do you have any muscle aches/pain?: No Do you have any abdominal pain?: No Are you experiencing loss of taste or smell?: No [facility] Anesthesia Checklist Patient Identification Patient Identification: Arm Band and Family Structural Data Admitted From: Inpatient Planned Operative Procedure/s: ERCP Consent for Planned Operative Procedure(s) Verified: Yes Verified Documents: Surgical Consent and History and Physical NPO Status Verified Time NPO: 00:00 Additional verifications Patient : No Anesthesia Reactions: No Hx Blood Transfusions: No Blood Transfusion Reaction: No Cephalosporin Allergy: No Previous Colonoscopy: No Airway Assessment Mallampati Score:: Class III C-Spine Mobility Assessed: Yes TMJ Mobility Assessed: Yes Dentition: Poor Dentition Neurological Assessment Level of Consciousness: Awake, Alert, Appropriate and Follows Commands Hx Seizures: No Numbness or tingling in extremities: No Anesthesia Plan Anesthesia Risk discussed: Yes ASA Class: III Anesthesia Type: General Preoperative Comments Pre-Operative Comments: Morbid Obesity, BMI 50.0-59.9. Hypertension. No previous Colonoscopy.
--- NOTE | 2025-05-16 15:43 | P.HP_ITS ---
History of Present Illness *Admission Date: 05/11/25 *History of present illness: Mr. Neville is a 30-year-old gentleman who is here for ERCP secondary to suspected bile duct leak. The patient did undergo laparoscopic cholecystectomy on 05/12/2025 and this was a difficult case with gallbladder completely obscured with severe adhesions there was thickening and marked inflammation. The cholecystectomy duration was about 5-1/2 hours. A JONATHAN drain was placed and subsequent to the procedure, an MRCP was performed and there was no transection of the bile duct and no significant abnormalities and no apparent bile duct leak. However, the patient has had significant volume of bile drainage from the JONATHAN drain. He has had some ongoing abdominal pain. Additionally, his transaminase liver chemistries have been elevated. His total bilirubin and alkaline phosphatase are normal. I did speak with Dr. Earnest Galan and he felt that this may be a primary cystic duct stump leak versus a duct of Luschka. ERCP is performed for further evaluation. [facility] Disclaimer: The information contained in this section may have been updated after the patient was seen, as this information can be updated by other users. Medical History (Updated 05/16/25 @ 15:46 by Clemente Scales II, MD) Respiratory distress Dental infection Family History (Updated 05/11/25 @ 11:45 by Judy Hammer RN) Other No significant family history Social History (Updated 05/12/25 @ 07:09 by Eric Velázquez CRNA) Smoking Status: Current every day smoker tobacco type: cigarettes packs per day: 1 pack-years: 13 alcohol intake: current alcohol intake frequency: 0-2 drinks per day substance use type: denies use current occupational status: employed Travel in the last 8 weeks?: None adopted: No caregiver/support person: No foster care: No household members: none housing: house lives independently: Yes marital status: single number of children: 0 number of grandchildren: 0 Have you lived/traveled outside US in past 30 days?: No Contact w/someone who lives/traveled outside US past 30 days?: No Exposure to someone with infectious disease in past 14 days?: No Do you have a fever (greater than 100.4 F or 38 C)?: No Have you tested positive for COVID-19?: No Exposed to someone with COVID-19 in past 14 days?: No Do you have a sore throat?: No Do you have a cough?: No Do you have any weakness?: No Do you have any diarrhea?: No Are you experiencing any unusual bleeding?: No Do you have any muscle aches/pain?: No Do you have any abdominal pain?: No Are you experiencing loss of taste or smell?: No Other Medical History Have you received the Flu Vaccine for this season: No Have you received the Pneumonia Vaccine: No Review of Systems Review of Systems Review of systems (narrative): Negative *Cardiovascular Comments: Negative *Gastrointestinal Comments: Negative *Genitourinary Comments: Negative *Musculoskeletal Comments: Negative *Neurologic Comments: Negative Meds Home Medications and Allergies Home Medications ?Medication ?Instructions ?Recorded ?Confirmed ?Type No Known Home Medications 05/11/2504/21 History New Prescriptions to Start Prescriptions: Allergies Allergy/AdvReac Type Severity Reaction Status Date / Time No Known Allergies Allergy Verified 01/03/25 10:39 Exam Data for Last 24 hours Vital signs and Labs for Last 24 Hours: Temp Pulse Resp BP Pulse Ox O2 Del Method O2 Flow Rate 97.8 F 78 22 162/96 H 96 Room Air 2 05/16/25 13:56 05/16/25 13:56 05/16/25 13:56 05/16/25 13:56 05/16/25 13:56 05/16/25 13:56 05/12/25 15:15 Laboratory Results - last 24 hr 05/16/25 05:54: WBC 9.3, RBC 5.11, Hgb 13.2 L, Hct 41.8 L, MCV 81.8, MCH 25.8 L, MCHC 31.6 L, RDW 12.5, Plt Count 437 H, MPV 9.7, Neut % (Auto) 61.1, Lymph % (Auto) 23.7, [place] % (Auto) 7.7, Eos % (Auto) 5.7, Baso % (Auto) 0.8, Neut # (Auto) 5.7, Lymph # (Auto) 2.2, [place] # (Auto) 0.7, Eos # (Auto) 0.5 H, Baso # (Auto) 0.1, Sodium 134 L, Potassium 4.0 D, Chloride 99, Carbon Dioxide 28, Anion Gap 11.0, BUN 8 L, Creatinine 1.00, Estimated Creat Clear 96, Estimated GFR 87, Est GFR ( Amer) 105, Glucose 91, Calcium 8.9, Magnesium 2.3, Total Bilirubin 0.6, AST 158 H D, ALT 279 H D, Alkaline Phosphatase 89, Total Protein 7.7, Albumin 3.0 L D, Globulin 4.7 H, Albumin/Globulin Ratio 0.6 L I & O for Last 24 hours: Intake & Output 05/13/25 05/14/25 05/15/25 05/16/25 23:59 23:59 23:59 23:59 Intake Total 2091.667 / 2091.667 660 / 660 1660 / 1660 100 / 100 Output Total 3110 / 3570 2670 / 2830 1260 / 1280 190 / 190 Balance -1018.333 / -1478.333 -2009 / -2170 400 / 380 -90 / -90 Weight 350 lb 9 oz 333 lb 1.6 oz 340 lb 337 lb 6.4 oz *Routine HEENT Exam Head: Present normocephalic Eye: Present EOMI and PERRL ENT: Present mucous membranes moist *Routine Neck Exam Neck: Present supple *Routine Respiratory Exam Respiratory: Present CTA bilaterally *Routine Cardiovascular Exam Cardiovascular: Present RRR *Routine Abdominal Exam Abdominal: Present soft and normoactive bowel sounds; Absent tenderness *Routine Rectal Exam Rectal:: deferred *Routine Genitalia Exam Genitalia:: deferred *Routine Extremities Exam Extremities: Absent cyanosis, clubbing or edema *Routine Skin Exam Skin: Present warm; Absent rash *Routine Neurological Exam Neurological: Present alert and oriented X3 Assessment and Plan *Assessment and plan (1) Bile duct leak: Status: Acute Category: Medical Code(s): K83.8 - Other specified diseases of biliary tract (2) Abdominal pain: Status: Acute Category: Medical Code(s): R10.9 - Unspecified abdominal pain (3) Transaminitis: Status: Acute Category: Medical Code(s): R74.01 - Elevation of levels of liver transaminase levels Plan A/P: 1. Large-volume bile drainage from JONATHAN with suspected bile duct leak, transaminitis and abdominal pain is the preprocedural diagnosis. The patient will be anesthetized/sedated using MAC sedation. The patient has been seen and examined. Cardiac and lung assessment prior to the examination is stable. Proceed with planned ERCP.
--- NOTE | 2025-05-16 15:47 | HMH.PROCNOTE ---
[facility] Procedure Note Date: 05/16/25 Time: 16:29 Procedure Note:: ERCP procedure Report: Endoscopic retrograde cholangiopancreatography with biliary sphincterotomy and biliary stent placement Endoscopist: Clemente Scales II, MD Referring Physician: Earnest Galan MD Date of Procedure: May 16, 2025 Equipment: Olympus 180 side viewing endoscope duodenoscope Sedation: MAC sedation Indication: Mr. Neville is a 30-year-old gentleman who is here for ERCP secondary to suspected bile duct leak. The patient did undergo laparoscopic cholecystectomy on 05/12/2025 and this was a difficult case with gallbladder completely obscured with severe adhesions there was thickening and marked inflammation. The cholecystectomy duration was about 5-1/2 hours. A JONATHAN drain was placed and subsequent to the procedure, an MRCP was performed and there was no transection of the bile duct and no significant abnormalities and no apparent bile duct leak. However, the patient has had significant volume of bile drainage from the JONATHAN drain. He has had some ongoing abdominal pain. Additionally, his transaminase liver chemistries have been elevated. His total bilirubin and alkaline phosphatase are normal. I did speak with Dr. Earnest Galan and he felt that this may be a primary cystic duct stump leak versus a duct of Luschka. ERCP is performed for further evaluation. Procedure: Prior to the procedure, a history and physical exam was performed, and patient's medications and allergies were reviewed. The risks (including pancreatitis), benefits and alternatives of the sedation and procedure were discussed with the patient. All questions were answered and informed consent was obtained. The patient was brought to the fluoroscopic radiology room. Patient identification and proposed procedure were verified by the physician and the nurse. The patient was placed in a swimmer's position between left lateral decubitus and prone position and the scope was passed under direct vision. Throughout the procedure, the patient's blood pressure, pulse, and oxygen saturations were monitored continuously. The ERCP was accomplished without difficulty. The patient tolerated the procedure well. Findings: The duodenoscope was passed directly into the upper esophagus and advanced to the second portion of the duodenum. The fluoroscopic C arm was then placed into position prior to cannulation with the duodenoscope was centered in a L-shaped position fluoroscopically in the second portion of duodenum. The entire endoscopic exam was done in conjunction with fluoroscopy. The cannula was then inserted through the duodenoscope channel and preloaded with low osmolar contrast. The esophagus, stomach and duodenum were normal. The ampulla was normal in appearance. Initially, the guidewire was used to cannulate and there was direct guidewire cannulation of the pancreatic duct but no contrast was utilized. Next, the common bile duct was cannulated with a guidewire. A cholangiogram was performed. There was normal filling of the common bile duct and intrahepatic biliary system. The CBD diameter was approximately 6 mm. There were no filling defects or strictures. There was full filling of the intrahepatic biliary system. The cystic duct stump, surgical tete and drain were in place. With moderate injection of contrast, there appeared to be very minor blush of contrast passing through the cystic duct stump. I did not want to inject with high-pressure especially if this was a partially closing bile duct leak. There was little drainage of contrast and bile from the ampulla and thus a biliary sphincterotomy was performed and a 10 Lithuanian/7 cm straight [place] biliary stent was deployed into the biliary system across the cystic duct stump into the common hepatic duct with good deployment and excellent extravasation of bile and contrast from the stent and ampulla. The pancreatic duct was not injected. Impression: 1. Bile duct leak (at cystic duct stump) partially sealed?status post biliary sphincterotomy and biliary stent placement Plan: I will discuss the findings with the patient and family. The patient will need to return in 8 to 12 weeks with EGD and stent removal.
--- NOTE | 2025-05-16 16:22 | XR_ITS ---
FINAL REPORT CLINICAL HISTORY: ERCP 0.8 min 58.93 mGy FINDINGS: Fluoroscopic spot film was obtained of the abdomen for ERCP. 0.8 minutes of fluoroscopy time was reported. 58.93 mGy. IMPRESSION: 0.8 minutes of fluoroscopy time, 58.93 mGy. Reviewed, Interpreted and Dictated by Rubens Barnett MD Transcribed by Piper Abdi Authenticated and [facility]
--- NOTE | 2025-05-16 16:31 | EXP.ANES.I ---
[facility] Anesthesia Record Part I Anesthesia Record I Intake, IV Amount: 1,000 Hydration: Adequate Estimated blood loss (mL): 0 Urine output (mL): 0 Blood Products used (#): none Blood Pressure: 145/93 SaO2: 95 Pulse Rate: 85 Airway Patency: Patent Respiratory Rate: 16 Temperature: 97.6 F Patient is:: Drowsy and Stable Stable to PACU at:: 16:25
--- NOTE | 2025-05-16 17:36 | PC.NURSE ---
patient a/ox4, remains on RA tolerating well. patient had ERCP this shift. currently on post op vitals. patient tolerating clear liquid diet. JONATHAN drain in place. c/o pain once this shift, treated per SEP. patient currently sitting up in bed, bed is low and locked, call light within reach.
[2025-05-16] MEDS: LIDOCAINE 5% TRANSDERMAL PATCH 1 EACH TD (18:27)
[2025-05-16] MEDS: MELATONIN 5MG TABLET 5 MG PO (21:05)
[2025-05-17] VITALS (7 sets, daily range): BP systolic 113–169; BP diastolic 79–97; PULSE 57–84; RESP 16–20; TEMP 36.4–37.1; O2SAT 96–99; BMI 51.5
[2025-05-17] MEDS: HYDROCODONE/APAP 5/325 MG TABLET 1 TAB PO ×3 (01:44→21:09)
--- NOTE | 2025-05-17 02:39 | PC.NURSE ---
Pt AOx4. Emptied 20mL of yellow/brown drainage from JONATHAN. Lap sites c/d/i. Pt just received prn pain medication for abdominal pain rated at a 7. Pt is currently sitting up in bed watching tv. Respirations even and unlabored. Bed is low, locked, and call light is in reach.
[2025-05-17] MEDS: CALCIUM CARBONATE 500MG CHEWTAB 500 MG PO ×2 (05:42→13:18)
[2025-05-17 06:07] LABS: Hematocrit 43.9 % (42.0-52.0); Hemoglobin 13.8 g/dL (14.1-18.0); Immature Granulocytes % 0.8 %; Mean Corpuscular HGB Conc 31.4 g/dL (31.8-35.4); Mean Corpuscular Hemoglobin 25.5 pg (27.0-31.2); Mean Corpuscular Volume 81.0 fl (80-94); Nucleated Red Blood Cells % 0 %; Platelet Count 542 K/mm3 (142-424); Red Blood Count 5.42 M/mm3 (4.60-6.20); Red Cell Distribution Width-SD 36.1 fL; White Blood Count 12.2 K/mm3 (4.8-10.8)
[2025-05-17 06:18] LABS: Alanine Aminotransferase 400 U/L (12-78); Albumin Level 3.5 g/dl (3.5-5.0); Albumin/Globulin Ratio 0.8 (1.1-1.8); Alkaline Phosphatase 101 U/L (38-126); Anion Gap 13.3 mEq/L (5-15); Aspartate Amino Transferase 194 U/L (17-59); Bilirubin,Total 0.7 mg/dl (0.2-1.3); Blood Urea Nitrogen 11 mg/dl (9-20); Calcium 9.5 mg/dl (8.4-10.2); Carbon Dioxide 28 mmol/L (22.0-30.0); Chloride 96 mmol/L (98-107); Creatinine Clearance Estimated 106 mL/min (50-200); Creatinine,Serum 0.90 mg/dl (0.66-1.25); Estimated Glomerular Filt Rate 98 ml/min (>60); GFR (African American) 118 ML/MIN (>60); Globulin 4.2 g/dL (1.3-3.2); Glucose 109 mg/dl (74-100); Magnesium 2.0 mg/dl (1.6-2.3); Potassium 4.3 mmoL/L (3.5-5.1); Sodium 133 mmol/L (136-145); Total Protein,Serum 7.7 g/dl (6.3-8.2)
--- NOTE | 2025-05-17 07:55 | EXP.PN ---
Subjective *Date: 05/17/25 *Time: 07:55 Interval history: Patient awake and alert and is not having any abdominal pain. He does state that after ERCP JONATHAN drain stopped draining bile. This bile drainage has slowly declined but completely stopped since ERCP yesterday. Patient tolerating liquids. Exam Data for Last 24 hours Vital signs and Labs for Last 24 Hours: Temp Pulse Resp BP Pulse Ox O2 Del Method O2 Flow Rate 97.8 F 65 20 169/80 H 99 Room Air 2 05/17/25 07:35 05/17/25 07:35 05/17/25 07:35 05/17/25 07:35 05/17/25 07:35 05/17/25 07:35 05/12/25 15:15 Laboratory Results - last 24 hr 05/17/25 05:54: WBC 12.2 H D, RBC 5.42, Hgb 13.8 L, Hct 43.9, MCV 81.0, MCH 25.5 L, MCHC 31.4 L, RDW 12.4, Plt Count 542 H, MPV 9.7, Neut % (Auto) 72.8, Lymph % (Auto) 18.8, [place] % (Auto) 4.9, Eos % (Auto) 2.1, Baso % (Auto) 0.6, Neut # (Auto) 8.9 H, Lymph # (Auto) 2.3, [place] # (Auto) 0.6, Eos # (Auto) 0.3, Baso # (Auto) 0.1, Sodium 133 L, Potassium 4.3, Chloride 96 L, Carbon Dioxide 28, Anion Gap 13.3, BUN 11 D, Creatinine 0.90, Estimated Creat Clear 106, Estimated GFR 98, Est GFR ( Amer) 118, Glucose 109 H, Calcium 9.5, Magnesium 2.0 D, Total Bilirubin 0.7, AST 194 H, ALT 400 H*, Alkaline Phosphatase 101, Total Protein 7.7, Albumin 3.5 D, Globulin 4.2 H, Albumin/Globulin Ratio 0.8 L I & O for Last 24 hours: Intake & Output 05/14/25 05/15/25 05/16/25 05/17/25 23:59 23:59 23:59 23:59 Intake Total 660 / 660 1660 / 1660 1220 / 1220 Output Total 2670 / 2830 1260 / 1280 240 / 260 Balance -2009 / 2170 400 / 380 980 / 960 - / 30 Weight 333 lb 1.6 oz 340 lb 337 lb 6.4 oz 328 lb 4.8 oz *Routine Abdominal Exam Abdominal: Present soft Comments: JONATHAN drain empty and belly soft with normoactive bowel sounds Assessment and Plan *Assessment and plan (1) Bile duct leak: Status: Acute Category: Medical Code(s): K83.8 - Other specified diseases of biliary tract (2) Transaminitis: Status: Acute Category: Medical Code(s): R74.01 - Elevation of levels of liver transaminase levels Plan 1. Bile duct leak at cystic duct stump. This was declining but still present yesterday. This has stopped altogether today and patient is doing well. I would advance diet and patient may be discharged. He will need to follow-up again in 8 to 12 weeks for EGD with biliary stent removal. I will have my office arrange with the patient. 2. Transaminitis. He did have a bump in transaminases. I do feel that this is a reactive injury and may be related to some hepatic ischemia. I would recommend repeating liver chemistries weekly until trend downwards and resolves.
--- NOTE | 2025-05-17 07:57 | EXP.SURG.PN ---
Subjective Narrative: Patient feels well without complaints. Successful ERCP with stent placement yesterday. Exam Data for Last 24 hours Vital signs and Labs for Last 24 Hours: Temp Pulse Resp BP Pulse Ox O2 Del Method O2 Flow Rate 97.8 F 65 20 169/80 H 99 Room Air 2 05/17/25 07:35 05/17/25 07:35 05/17/25 07:35 05/17/25 07:35 05/17/25 07:35 05/17/25 07:35 05/12/25 15:15 Laboratory Results - last 24 hr 05/17/25 05:54: WBC 12.2 H D, RBC 5.42, Hgb 13.8 L, Hct 43.9, MCV 81.0, MCH 25.5 L, MCHC 31.4 L, RDW 12.4, Plt Count 542 H, MPV 9.7, Neut % (Auto) 72.8, Lymph % (Auto) 18.8, [place] % (Auto) 4.9, Eos % (Auto) 2.1, Baso % (Auto) 0.6, Neut # (Auto) 8.9 H, Lymph # (Auto) 2.3, [place] # (Auto) 0.6, Eos # (Auto) 0.3, Baso # (Auto) 0.1, Sodium 133 L, Potassium 4.3, Chloride 96 L, Carbon Dioxide 28, Anion Gap 13.3, BUN 11 D, Creatinine 0.90, Estimated Creat Clear 106, Estimated GFR 98, Est GFR ( Amer) 118, Glucose 109 H, Calcium 9.5, Magnesium 2.0 D, Total Bilirubin 0.7, AST 194 H, ALT 400 H*, Alkaline Phosphatase 101, Total Protein 7.7, Albumin 3.5 D, Globulin 4.2 H, Albumin/Globulin Ratio 0.8 L I & O for Last 24 hours: Intake & Output 05/14/25 05/15/25 05/16/25 05/17/25 11:59 11:59 11:59 11:59 Intake Total 572.917 / 615.464 3136 / 1300 920 / 920 1120 / 1120 Output Total 2870 / 2870 2550 / 2550 270 / 320 80 / 80 Balance -2297.083 / -2297.083 -1250 / -1250 650 / 600 1040 / 1040 Weight 333 lb 1.6 oz 340 lb 337 lb 6.4 oz 328 lb 4.8 oz *Routine Abdominal Exam Abdominal: Present soft; Absent tenderness Progress Note: A&P Assessment and plan (1) Acute cholecystitis: Status: Acute (2) Abdominal pain: Status: Acute (3) Leukocytosis: Status: Acute (4) Status post laparoscopic cholecystectomy: Status: Acute (5) Transaminitis: Status: Acute (6) Morbid obesity with BMI of 50.0-59.9, adult: Status: Acute (7) UTI (urinary tract infection): Status: Acute Assessment and Plan Assessment and Plan for All Diagnoses:: Transaminases somewhat elevated with normal bilirubin. JONATHAN drain dramatically diminished scant output. Plan to advance diet and monitor blood work overnight. Probable discharge tomorrow with JONATHAN drain in place.
[2025-05-17] MEDS: AMLODIPINE 5MG TABLET 5 MG PO (08:03)
[2025-05-17] MEDS: IRBESARTAN 150MG TAB 150 MG PO (08:03)
[2025-05-17] MEDS: METOPROLOL TARTRATE 25MG TABLET 25 MG PO ×2 (08:03→21:08)
[2025-05-17] MEDS: DOCUSATE SODIUM 250MG CAPSULE 250 MG PO (08:03)
[2025-05-17] MEDS: SENNA 8.6MG TABLET 17.2 MG PO (08:04)
--- NOTE | 2025-05-17 09:24 | EXP.ANES.II ---
[facility] Anesthesia Record Part II Anesthesia Record Part II Discharge Time: 16:45 Destination: Medical Surgical Department PACU nurse assessment reviewed?: Yes Patient Condition:: Good Anesthesia Complications:: None Swallowing reflex intact?: Yes Airway Patency: Patent Cyanosis?: No Blood Pressure: 113/87 SaO2: 97 Respiratory Rate: 20 Pulse Rate: 84 Temperature: 97.6 F Mental Status: Alert & Oriented Pain level:: 0 Nausea and/or vomitting:: None Intake, IV Amount: 0 Hydration: Adequate
[2025-05-17] MEDS: LIDOCAINE 5% TRANSDERMAL PATCH 1 EACH TD (16:48)
--- NOTE | 2025-05-17 16:54 | P.PN_ITS ---
Subjective *Date: 05/17/25 *Time: 18:11 Interval history: s/p ERCP on 05/16/2025 with evidence of biliary duct leak s/p biliary sphincterotomy and stent placement. Patient tolerated procedure well. However, LFTs bumped today AST/ALT 194/401 total bilirubin and ALP normal. Continues to have intermittent right upper quadrant pain, and this afternoon JONATHAN drain is having slightly more bilious output. General surgery evaluated, will monitor overnight and follow-up on LFTs in the morning. Will also monitor JONATHAN drain output. Exam Data for Last 24 hours Vital signs and Labs for Last 24 Hours: Temp Pulse Resp BP Pulse Ox O2 Del Method O2 Flow Rate 98.8 F 81 18 157/97 H 98 Room Air 2 05/17/25 16:00 05/17/25 16:00 05/17/25 16:00 05/17/25 16:00 05/17/25 16:00 05/17/25 16:00 05/12/25 15:15 Laboratory Results - last 24 hr 05/17/25 05:54: WBC 12.2 H D, RBC 5.42, Hgb 13.8 L, Hct 43.9, MCV 81.0, MCH 25.5 L, MCHC 31.4 L, RDW 12.4, Plt Count 542 H, MPV 9.7, Neut % (Auto) 72.8, Lymph % (Auto) 18.8, [place] % (Auto) 4.9, Eos % (Auto) 2.1, Baso % (Auto) 0.6, Neut # (Auto) 8.9 H, Lymph # (Auto) 2.3, [place] # (Auto) 0.6, Eos # (Auto) 0.3, Baso # (Auto) 0.1, Sodium 133 L, Potassium 4.3, Chloride 96 L, Carbon Dioxide 28, Anion Gap 13.3, BUN 11 D, Creatinine 0.90, Estimated Creat Clear 106, Estimated GFR 98, Est GFR ( Amer) 118, Glucose 109 H, Calcium 9.5, Magnesium 2.0 D, Total Bilirubin 0.7, AST 194 H, ALT 400 H*, Alkaline Phosphatase 101, Total Protein 7.7, Albumin 3.5 D, Globulin 4.2 H, Albumin/Globulin Ratio 0.8 L I & O for Last 24 hours: Intake & Output 05/14/25 05/15/25 05/16/25 05/17/25 23:59 23:59 23:59 23:59 Intake Total 660 / 660 1660 / 1660 1220 / 1220 1080 / 1080 Output Total 2670 / 2830 1260 / 1280 240 / 260 Balance -[id number] 400 / 380 980 / 960 1049 / 1049 Weight 151.092 kg 154.221 kg 153.042 kg 148.914 kg Constitutional Constitutional: no acute distress and obese *Routine HEENT Exam Head: Present normocephalic Eye: Present EOMI and PERRL ENT: Present mucous membranes moist *Routine Neck Exam Neck: Present supple; Absent lymphadenopathy *Routine Respiratory Exam Respiratory: Present CTA bilaterally *Routine Cardiovascular Exam Cardiovascular: Present RRR *Routine Abdominal Exam Abdominal: Present soft and normoactive bowel sounds; Absent tenderness *Routine Extremities Exam Extremities: Absent cyanosis, clubbing or edema Comments: JONATHAN drain in place with bilious output. *Routine Skin Exam Skin: Present warm; Absent rash *Routine Neurological Exam Neurological: Present alert and oriented X3 Assessment and Plan *Assessment and plan (1) Acute cholecystitis: Status: Acute Category: Medical Code(s): K81.0 - Acute cholecystitis (2) Abdominal pain: Status: Acute Category: Medical Code(s): R10.9 - Unspecified abdominal pain (3) Leukocytosis: Status: Acute Category: Medical Code(s): D72.829 - Elevated white blood cell count, unspecified (4) Status post laparoscopic cholecystectomy: Status: Acute Category: Surgical Code(s): Z90.49 - Acquired absence of other specified parts of digestive tract (5) Transaminitis: Status: Acute Category: Medical Code(s): R74.01 - Elevation of levels of liver transaminase levels (6) Morbid obesity with BMI of 50.0-59.9, adult: Status: Acute Category: Medical Code(s): E66.01 - Morbid (severe) obesity due to excess calories; Z68.43 - Body mass index [BMI] 50.0-59.9, adult (7) UTI (urinary tract infection): Status: Acute Category: Medical Code(s): N39.0 - Urinary tract infection, site not specified Plan Mr. Neville is a 30-year-old male who presented to the emergency department with complaints of abdominal pain, nausea, vomiting. He underwent laparoscopic cholecystectomy and is continuing with postoperative course including JONATHAN drain evaluations, gastroenterology evaluation pending, assessing for diet tolerance and bowel elimination. Problems addressed as follows: Acute cholecystitis, resolved Postoperative seroma s/p laparoscopic cholecystectomy (05/12/2025) MRCP (05/13/2025): Tiny fluid collection in gallbladder fossa ? GI consulted, s/p ERCP on 05/16/2025 with evidence of biliary duct leak s/p biliary sphincterotomy and stent placement. Patient tolerated procedure well. However, LFTs bumped today AST/ALT 194/401 total bilirubin and ALP normal. Continues to have intermittent right upper quadrant pain, and this afternoon JONATHAN drain is having slightly more bilious output. General surgery evaluated, will monitor overnight and follow-up on LFTs in the morning. Will also monitor JONATHAN drain output. JONATHAN drain care with bilious output noted. General Surgery following Trending labs and inflammatory markers Treated with IV Zosyn for 6 days. Pain control Parenterally administered controlled substance for comfort care Bowel regiment Accurate I's and O's Advancing diet as tolerated Encouraging ambulation Hypertension Routine blood pressure monitoring Dihydropyridine calcium channel elmer therapy Beta-elmer therapy ARB therapy BMI 53 Nutrition education Calorie appropriate diet Outpatient follow-up with PCP to discuss current strategies At risk for sleep apnea Complicates all aspects of his care DVT prophylaxis: SCD's CODE STATUS: Full code POA: Significant other
--- NOTE | 2025-05-17 18:40 | PC.NURSE ---
I assumed care of patient at 1600. He has complained of pain once, prn pain meds administered x1 with pt reporting relief on reassessment. Lidocaine patch applied to back as well. Pt tolerating diet. JONATHAN drain to abd w/minimal output. One bm reported this shift. Pt has no questions or concerns at this time. Bed is locked and in lowest position, call light within reach.
[2025-05-17] MEDS: MELATONIN 5MG TABLET 5 MG PO (21:08)
[2025-05-18] VITALS: BP 131/72; PULSE 58; RESP 18; TEMP 36.9; O2SAT 96
[2025-05-18 04:00] VITALS: BP 133/86; PULSE 75; RESP 18; TEMP 36.7; O2SAT 95; BMI 50.7
[2025-05-18] MEDS: HYDROCODONE/APAP 5/325 MG TABLET 1 TAB PO (05:44)
[2025-05-18 06:15] LABS: Hematocrit 44.3 % (42.0-52.0); Hemoglobin 13.9 g/dL (14.1-18.0); Immature Granulocytes % 1.1 %; Mean Corpuscular HGB Conc 31.4 g/dL (31.8-35.4); Mean Corpuscular Hemoglobin 25.5 pg (27.0-31.2); Mean Corpuscular Volume 81.3 fl (80-94); Nucleated Red Blood Cells % 0 %; Platelet Count 523 K/mm3 (142-424); Red Blood Count 5.45 M/mm3 (4.60-6.20); Red Cell Distribution Width-SD 37.0 fL; White Blood Count 10.8 K/mm3 (4.8-10.8)
[2025-05-18 06:21] LABS: Alanine Aminotransferase 543 U/L (12-78); Albumin Level 3.4 g/dl (3.5-5.0); Albumin/Globulin Ratio 0.7 (1.1-1.8); Alkaline Phosphatase 100 U/L (38-126); Anion Gap 16.0 mEq/L (5-15); Aspartate Amino Transferase 262 U/L (17-59); Bilirubin,Total 0.6 mg/dl (0.2-1.3); Blood Urea Nitrogen 13 mg/dl (9-20); Calcium 9.3 mg/dl (8.4-10.2); Carbon Dioxide 26 mmol/L (22.0-30.0); Chloride 99 mmol/L (98-107); Creatinine Clearance Estimated 96 mL/min (50-200); Creatinine,Serum 1.00 mg/dl (0.66-1.25); Estimated Glomerular Filt Rate 87 ml/min (>60); GFR (African American) 105 ML/MIN (>60); Globulin 4.8 g/dL (1.3-3.2); Glucose 111 mg/dl (74-100); Magnesium 1.9 mg/dl (1.6-2.3); Potassium 4.0 mmoL/L (3.5-5.1); Sodium 137 mmol/L (136-145); Total Protein,Serum 8.2 g/dl (6.3-8.2)
[2025-05-18 07:57] VITALS: BP 153/87; PULSE 73; RESP 17; TEMP 36.9; O2SAT 96
--- NOTE | 2025-05-18 08:01 | EXP.SURG.PN ---
Subjective Patient reports: no new complaints Narrative: The patient states that he feels pretty good . He is hopeful that he will be discharged later today. Exam Data for Last 24 hours Vital signs and Labs for Last 24 Hours: Temp Pulse Resp BP Pulse Ox O2 Del Method O2 Flow Rate 98.5 F 73 17 153/87 H 96 Room Air 2 05/18/25 07:57 05/18/25 07:57 05/18/25 07:57 05/18/25 07:57 05/18/25 07:57 05/18/25 07:57 05/12/25 15:15 Laboratory Results - last 24 hr 05/18/25 05:43: WBC 10.8, RBC 5.45, Hgb 13.9 L, Hct 44.3, MCV 81.3, MCH 25.5 L, MCHC 31.4 L, RDW 12.7, Plt Count 523 H, MPV 10.0, Neut % (Auto) 63.2, Lymph % (Auto) 24.1, [place] % (Auto) 6.6, Eos % (Auto) 4.3, Baso % (Auto) 0.7, Neut # (Auto) 6.8, Lymph # (Auto) 2.6, [place] # (Auto) 0.7, Eos # (Auto) 0.5 H, Baso # (Auto) 0.1, Sodium 137, Potassium 4.0, Chloride 99, Carbon Dioxide 26, Anion Gap 16.0 H, BUN 13, Creatinine 1.00, Estimated Creat Clear 96, Estimated GFR 87, Est GFR ( Amer) 105, Glucose 111 H, Calcium 9.3, Magnesium 1.9, Total Bilirubin 0.6, AST 262 H D, ALT 543 H*, Alkaline Phosphatase 100, Total Protein 8.2, Albumin 3.4 L, Globulin 4.8 H, Albumin/Globulin Ratio 0.7 L I & O for Last 24 hours: Intake & Output 05/15/25 05/16/25 05/17/25 05/18/25 11:59 11:59 11:59 11:59 Intake Total 1300 / 1300 920 / 920 1740 / 1740 1400 / 1400 Output Total 2550 / 2550 270 / 320 80 / 80 31 / 31 Balance -1250 / -1250 650 / 600 1660 / 1660 1369 / 1369 Weight 340 lb 337 lb 6.4 oz 328 lb 4.8 oz 323 lb Constitutional Constitutional: no acute distress *Routine Respiratory Exam Respiratory: Absent respiratory distress *Routine Cardiovascular Exam Cardiovascular: Absent tachycardia *Routine Abdominal Exam Comments: Incisions healing without evidence of infection. Alvarado-Hinds drain with serous (bilious stained) output. Progress Note: A&P Assessment and plan (1) Acute cholecystitis: Status: Acute (2) Leukocytosis: Status: Resolved (3) Transaminitis: Status: Acute Assessment and plan: Slight increase noted today. Assessment and Plan Assessment and Plan for All Diagnoses:: Overall stable status post laparoscopic cholecystectomy. Leukocytosis resolved. Bilirubin remains normal. Transaminase elevation slightly worse on a.m. labs today. Okay from surgical standpoint for discharge home with close outpatient follow-up (leave JONATHAN drain for now) Repeat CBC/CMP at time of follow-up
[2025-05-18] MEDS: IRBESARTAN 150MG TAB 150 MG PO (08:17)
[2025-05-18] MEDS: AMLODIPINE 5MG TABLET 5 MG PO (08:17)
[2025-05-18] MEDS: METOPROLOL TARTRATE 25MG TABLET 25 MG PO (08:17)
[2025-05-18] MEDS: SENNA 8.6MG TABLET 17.2 MG PO (08:17)
[2025-05-18] MEDS: DOCUSATE SODIUM 250MG CAPSULE 250 MG PO (08:17)
--- NOTE | 2025-05-18 13:28 | P.DS_ITS ---
General Admission date:: 05/11/25 HPI HPI HPI: Mr. Neville is a 30-year-old gentleman who is here for ERCP secondary to suspected bile duct leak. The patient did undergo laparoscopic cholecystectomy on 05/12/2025 and this was a difficult case with gallbladder completely obscured with severe adhesions there was thickening and marked inflammation. The cholecystectomy duration was about 5-1/2 hours. A JONATHAN drain was placed and subsequent to the procedure, an MRCP was performed and there was no transection of the bile duct and no significant abnormalities and no apparent bile duct leak. However, the patient has had significant volume of bile drainage from the JONATHAN drain. He has had some ongoing abdominal pain. Additionally, his transaminase liver chemistries have been elevated. His total bilirubin and alkaline phosphatase are normal. I did speak with Dr. Earnest Galan and he felt that this may be a primary cystic duct stump leak versus a duct of [place]. ERCP is performed for further evaluation. Hospital Course Hospital Course Hospital Course: Mr. Neville is a 30-year-old male who presented to the emergency department with complaints of abdominal pain, nausea, vomiting s/p laparoscopic cholecystectomy complicated by biliary duct leak s/p ERCP. Acute cholecystitis, resolved Postoperative seroma ? S/p laparoscopic cholecystectomy (05/12/2025) ? MRCP (05/13/2025): Tiny fluid collection in gallbladder fossa ? GI consulted, s/p ERCP on 05/16/2025 with evidence of biliary duct leak s/p biliary sphincterotomy and stent placement. Patient tolerated procedure well. ? LFTs slightly higher today, since ERCP. AST/ALT 262/543, but bilirubin and ALP normal. Patient states his abdominal pain has significantly improved, tolerating p.o. intake without issues. Having bowel movements. ? JONATHAN drain having slight bilious drainage. ? General Surgery evaluated, recommend further outpatient management and close follow-up with JONATHAN drain. Will obtain repeat outpatient CMP on 05/23/2024. ? Overall, patient clinically improved during hospital course. Treated with Zosyn for 6 days. ? Will follow-up with cardiology within 1 week. Hypertension Blood pressure significantly elevated during admission, was started on multiple agents. ? Will discharge with irbesartan 150 mg daily, will need to follow-up with PCP for further evaluation management. BMI 53 Complicates all aspects of his care Exam Data for Last 24 hours Vital signs and Labs for Last 24 Hours: Temp Pulse Resp BP Pulse Ox O2 Del Method O2 Flow Rate 98.5 F 73 17 153/87 H 96 Room Air 2 05/18/25 07:57 05/18/25 07:57 05/18/25 07:57 05/18/25 07:57 05/18/25 07:57 05/18/25 08:32 05/12/25 15:15 Laboratory Results - last 24 hr 05/18/25 05:43: WBC 10.8, RBC 5.45, Hgb 13.9 L, Hct 44.3, MCV 81.3, MCH 25.5 L, MCHC 31.4 L, RDW 12.7, Plt Count 523 H, MPV 10.0, Neut % (Auto) 63.2, Lymph % (Auto) 24.1, [place] % (Auto) 6.6, Eos % (Auto) 4.3, Baso % (Auto) 0.7, Neut # (Auto) 6.8, Lymph # (Auto) 2.6, [place] # (Auto) 0.7, Eos # (Auto) 0.5 H, Baso # (Auto) 0.1, Sodium 137, Potassium 4.0, Chloride 99, Carbon Dioxide 26, Anion Gap 16.0 H, BUN 13, Creatinine 1.00, Estimated Creat Clear 96, Estimated GFR 87, Est GFR ( Amer) 105, Glucose 111 H, Calcium 9.3, Magnesium 1.9, Total Bilirubin 0.6, AST 262 H D, ALT 543 H*, Alkaline Phosphatase 100, Total Protein 8.2, Albumin 3.4 L, Globulin 4.8 H, Albumin/Globulin Ratio 0.7 L I & O for Last 24 hours: Intake & Output 05/15/25 05/16/25 05/17/25 05/18/25 23:59 23:59 23:59 23:59 Intake Total 1660 / 1660 1220 / 1220 1600 / 1780 770 / 770 Output Total 1260 / 1280 240 / 260 31 / 31 30 / 30 Balance 400 / 380 980 / 960 1569 / 1749 740 / 740 Weight 154.221 kg 153.042 kg 148.914 kg 146.51 kg Constitutional Constitutional: no acute distress and obese *Routine HEENT Exam Head: Present normocephalic Eye: Present EOMI and PERRL ENT: Present mucous membranes moist *Routine Neck Exam Neck: Present supple; Absent lymphadenopathy *Routine Respiratory Exam Respiratory: Absent respiratory distress *Routine Cardiovascular Exam Cardiovascular: Absent tachycardia *Routine Abdominal Exam Abdominal: Present soft and normoactive bowel sounds; Absent tenderness Comments: Incisions healing without evidence of infection. Alvarado-Hinds drain with serous (bilious stained) output. *Routine Extremities Exam Extremities: Absent cyanosis, clubbing or edema *Routine Skin Exam Skin: Present warm; Absent rash *Routine Neurological Exam Neurological: Present alert and oriented X3 Results Data Completed and Pending Labs on day of discharge: Labs from last 24 hours 05/18/25 05:43 WBC 10.8 RBC 5.45 Hgb 13.9 L Hct 44.3 MCV 81.3 MCH 25.5 L MCHC 31.4 L RDW 12.7 Plt Count 523 H MPV 10.0 Neut % (Auto) 63.2 Lymph % (Auto) 24.1 [place] % (Auto) 6.6 Eos % (Auto) 4.3 Baso % (Auto) 0.7 Neut # (Auto) 6.8 Lymph # (Auto) 2.6 [place] # (Auto) 0.7 Eos # (Auto) 0.5 H Baso # (Auto) 0.1 Sodium 137 Potassium 4.0 Chloride 99 Carbon Dioxide 26 Anion Gap 16.0 H BUN 13 Creatinine 1.00 Estimated Creat Clear 96 Estimated GFR 87 Est GFR ( Amer) 105 Glucose 111 H Calcium 9.3 Magnesium 1.9 Total Bilirubin 0.6 AST 262 H D ALT 543 H* Alkaline Phosphatase 100 Total Protein 8.2 Albumin 3.4 L Globulin 4.8 H Albumin/Globulin Ratio 0.7 L DS: Diagnosis Discharge Diagnosis (1) Acute cholecystitis: Status: Acute Code(s): K81.0 - Acute cholecystitis (2) Leukocytosis: Status: Resolved Code(s): D72.829 - Elevated white blood cell count, unspecified (3) Transaminitis: Status: Acute Code(s): R74.01 - Elevation of levels of liver transaminase levels Meds Home Medications and Allergies Home Medications ?Medication ?Instructions ?Recorded ?Confirmed ?Type hydrocodone 5 mg-acetaminophen 325 1 tab PO Q4HP PRN M oderate To 05/18/25 Rx mg tablet Severe Pain (4-10) #14 tabs irbesartan 150 mg tablet 150 mg PO DAILY 30 days #30 tabs 05/18/25 Rx New Prescriptions to Start Prescriptions: hydrocodone-acetaminophen Gokul Hendricksonesartan Gokul Hendrickson Allergies Allergy/AdvReac Type Severity Reaction Status Date / Time No Known Allergies Allergy Verified 01/03/25 10:39 Discharge Plan Disposition Patient Disposition: Home, Self-Care Condition: Fair Discharge Order Discharge Orders: Discharge Order (Routine); Ordered 05/18/25 Ordered By: Gokul Hendrickson Follow up Plan Follow up with: Earnest Galan MD [Staff Physician, General Surgery] - 05/24/25 1:00 pm Prescriptions/Medication Reconciliation: New hydrocodone-acetaminophen 5-325 mg Tablet 1 tab PO Q4HP PRN (Reason: Moderate To Severe Pain (4-10)) Qty: 14 0RF irbesartan 150 mg Tablet 150 mg PO DAILY 30 Days Qty: 30 0RF Other Ambulatory Orders: Comprehensive Metabolic Panel (Routine) Timeframe: 20250523 Facility: [facility] - Location: Laboratory Ordered By: Gokul Hendrickson Problem Reconciliation Problems Reviewed?: Yes Patient Discharge Instructions Patient Instructions: DI for Endoscopic Retrograde Cholangiopancreatography, DI for Surgical Site Infection, DI for Cholecystitis, DI for Laparoscopic Cholecystectomy, Stop Light Infection Print Language: [place] Providers Primary Care Provider: Provider,Referral Admit Provider: Gokul Hendrickson Attending Provider: Gokul Hendrickson
--- NOTE | 2025-05-19 09:57 | SW/DCPLANNER ---
Spoke with patient on the phone. Patient stated that he is doing good. patient stated that he is aware of his upcoming appointments. Patient stated that he was able to get his medicine picked up from the pharmacy. Patient stated that he has no concerns or questions at this time. Sissy Dawkins
== END 2025-05-18 14:39 | disposition home or self-care (01) | DRG 417 ==
LOC: ER 10:12 → 2ND 12:13 → ICU 05-12 14:22 → 2ND 05-13 14:34
PROVIDERS: Internal Medicine Adolescent Medicine; Internal Medicine Gastroenterology; Nurse Practitioner Family; Surgery; Admitting Provider Student in an Organized Health Care Education/Training Program; Emergency Provider Student in an Organized Health Care Education/Training Program; Visit Provider Student in an Organized Health Care Education/Training Program
PROC: 0FT44ZZ Resection of Gallbladder, Percutaneous Endoscopic Approach (ICD-10-PCS; CPT 47562; principal; 2025-05-12 07:30)
PROC: 0F798DZ Dilation of Common Bile Duct with Intraluminal Device, Via Natural or Artificial Opening Endoscopic (ICD-10-PCS; CPT 43260; principal; 2025-05-16 15:30)
DX: K80.00 Calculus of gallbladder with acute cholecystitis without obstruction (principal); K76.3 Infarction of liver; S35.299A Unspecified injury of branches of celiac and mesenteric artery, initial encounter; I97.52 Accidental puncture and laceration of a circulatory system organ or structure during other procedure; Z68.43 Body mass index [BMI] 50.0-59.9, adult; N39.0 Urinary tract infection, site not specified; K91.872 Postprocedural seroma of a digestive system organ or structure following a digestive system procedure; K91.89 Other postprocedural complications and disorders of digestive system; K82.A1 Gangrene of gallbladder in cholecystitis; K83.8 Other specified diseases of biliary tract; K76.0 Fatty (change of) liver, not elsewhere classified; E66.01 Morbid (severe) obesity due to excess calories; I10 Essential (primary) hypertension; K82.8 Other specified diseases of gallbladder; F17.210 Nicotine dependence, cigarettes, uncomplicated; R06.03 Acute respiratory distress; R74.01 Elevation of levels of liver transaminase levels; Y83.6 Removal of other organ (partial) (total) as the cause of abnormal reaction of the patient, or of later complication, without mention of misadventure at the time of the procedure
CPT/HCPCS: 36415; 51702; 71045; 74018; 74177; 74183; 76000; 76376; 76705; 80053; 80061; 81001; 83605; 83690; 83735; 85025; 87086; 97162; 99285; A9576; C1769; C2617; J0690; J1100; J1171; J1200; J1885; J2003; J2250; J2270; J2405; J2543; J2704; J2795; J3010; J7120; Q9967

== ENCOUNTER 2025-05-24 11:38 | Outpatient (CLI) | payer OTHER, SELFPAY ==
[2025-05-24] MEDS: KETOROLAC 15MG/ML VIAL 15 MG IM (11:42)
[2025-05-24 11:48] VITALS: BP 141/90; PULSE 100; RESP 20; TEMP 36.7; O2SAT 99
[2025-05-24 12:44] LABS: Hematocrit 44.7 % (42.0-52.0); Hemoglobin 14.0 g/dL (14.1-18.0); Immature Granulocytes % 0.6 %; Mean Corpuscular HGB Conc 31.3 g/dL (31.8-35.4); Mean Corpuscular Hemoglobin 25.6 pg (27.0-31.2); Mean Corpuscular Volume 81.9 fl (80-94); Nucleated Red Blood Cells % 0 %; Platelet Count 444 K/mm3 (142-424); Red Blood Count 5.46 M/mm3 (4.60-6.20); Red Cell Distribution Width-SD 38.3 fL; White Blood Count 17.0 K/mm3 (4.8-10.8)
[2025-05-24 13:22] LABS: Albumin Level 4.6 g/dl (3.5-5.0); Chloride 99 mmol/L (98-107); Potassium 4.7 mmoL/L (3.5-5.1); Sodium 135 mmol/L (136-145)
[2025-05-24 13:25] LABS: Alanine Aminotransferase 121 U/L (12-78); Albumin/Globulin Ratio 1.8 (1.1-1.8); Alkaline Phosphatase 86 U/L (38-126); Anion Gap 13.7 mEq/L (5-15); Aspartate Amino Transferase 30 U/L (17-59); Bilirubin,Total 0.8 mg/dl (0.2-1.3); Blood Urea Nitrogen 9 mg/dl (9-20); Calcium 9.0 mg/dl (8.4-10.2); Carbon Dioxide 27 mmol/L (22.0-30.0); Creatinine,Serum 0.80 mg/dl (0.66-1.25); Estimated Glomerular Filt Rate 112 ml/min (>60); GFR (African American) 136 ML/MIN (>60); Globulin 2.6 g/dL (1.3-3.2); Glucose 105 mg/dl (74-100); Total Protein,Serum 7.2 g/dl (6.3-8.2)
== END 2025-05-24 23:59 | disposition home or self-care (01) ==
LOC: INF 11:39
PROVIDERS: Visit Provider Surgery
DX: K83.8 Other specified diseases of biliary tract (principal)
CPT/HCPCS: 36415; 80053; 85025; 96372; J1885

== ENCOUNTER 2025-05-25 09:07 | Outpatient (CLI) | payer OTHER, SELFPAY ==
--- NOTE | 2025-05-25 09:30 | CT_ITS ---
FINAL REPORT TECHNIQUE: Thin section axial images were obtained through the abdomen after intravenous contrast. Oral contrast was given. Reconstruction images were obtained from the axial data. Exam was performed using dose reduction techniques. CLINICAL HISTORY: s/p lap sylvain COMPARISON: 05/11/2025 FINDINGS: The lung bases are clear. There is fatty infiltration of the liver. The gallbladder has been resected since the prior exam. There is a surgical drain along the undersurface of the liver. There is a small amount of fluid in the gallbladder fossa which is not unexpected after surgery. Common bile duct stent is present. The spleen, adrenal glands, and pancreas are unremarkable. There is no hydronephrosis or solid renal mass. Abdominal GI tract is without acute abnormality. There is no abdominal lymphadenopathy or ascites. The appendix is normal. There is no evidence of pelvic lymphadenopathy. There is a small amount of pelvic free fluid, likely postoperative. No acute osseous abnormalities identified. IMPRESSION: Interval cholecystectomy. Small amount of fluid in the gallbladder fossa which is not unexpected after surgery. Surgical drain is in place. Reviewed, Interpreted and Dictated by Alyssa Parrish MD Transcribed by Barb France Authenticated and . [facility]
[2025-05-25] MEDS: SODIUM CHLORIDE 0.9% 10ML SYR (RAD ONLY) 10 ML IV (09:36)
[2025-05-25] MEDS: BARIUM SULFATE(READI-CAT2);450ML BOTTLE 450 ML PO (09:36)
[2025-05-25] MEDS: IOPAMIDOL-370 (76%);100ML BOTTLE 75 ML IV (09:36)
== END 2025-05-25 23:59 | disposition home or self-care (01) ==
LOC: RAD 09:07
PROVIDERS: Visit Provider Surgery
DX: K83.8 Other specified diseases of biliary tract (principal); Z90.49 Acquired absence of other specified parts of digestive tract
CPT/HCPCS: 74177; Q9967